=== PATIENT | female | born 1955 ===

== ENCOUNTER 2017-05-16 10:03 | Inpatient (IN) | payer OTHER ==
[2017-05-16 10:04] VITALS: BMI 36.6
--- NOTE | 2017-05-16 12:53 | C.PDOC ---
History Of Present Illness 61yo female with hypertension, high cholesterol, presents to ER for evaluation after she was instructed by her doctor, Dr. Hadley. Patient states she was informed to come for a kidney evaluation as her lab results were not normal. She reports mild pain to her right leg and states she feels short of breath after exertion. She has no other complaints. 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[id number]) History/Exam Limitations: no limitations Reports Recently: Treated By A Physician Past Medical History Reviewed: Historical Data, Nursing Documentation, Vital Signs Vital Signs: Last Vital Signs Temp 98.4 F 05/16/17 14:07 Pulse 58 L 05/16/17 14:07 Resp 18 05/16/17 14:07 BP 152/86 H 05/16/17 14:07 Pulse Ox 100 05/16/17 15:40 - Medical History PMH: HTN, Hypercholesterolemia Surgical History: No Surg Hx - [facility] Procedures DRAINAGE OF RIGHT KIDNEY WITH DRAINAGE DEVICE, PERC APPROACH (01/11/16) Family History: States: No Known Family Hx, Unknown Family Hx - Social History Hx Tobacco Use: No Hx Alcohol Use: No Hx Substance Use: No - Immunization History Hx Tetanus Toxoid Vaccination: No Hx Influenza Vaccination: No Hx Pneumococcal Vaccination: No Review Of Systems Except As Marked, All Systems Reviewed And Found Negative. Constitutional: Negative for: Fever Cardiovascular: Negative for: Chest Pain Respiratory: Positive for: SOB with Excertion Musculoskeletal: Positive for: Leg Pain (right) Physical Exam - Physical Exam Appears: Non-toxic, No Acute Distress Skin: Normal Color, Warm, No Rash Head: Normacephalic Eye(s): bilateral: Normal Inspection, PERRL, EOMI Oral Mucosa: Moist Neck: Normal ROM, Supple Chest: Symmetrical Cardiovascular: Rhythm Regular, No Friction Rub, No Murmur Respiratory: Normal Breath Sounds, No Rales, No Rhonchi, No Wheezing Gastrointestinal/Abdominal: Soft, No Tenderness Back: Normal Inspection, No CVA Tenderness Extremity: Normal ROM, No Tenderness, No Pedal Edema, No Swelling Pulses: Left Dorsalis Pedis: Normal, Right Dorsalis Pedis: Normal Neurological/Psych: Oriented x3, Normal Speech, Normal Cognition Gait: Steady ED Course And Treatment - Laboratory Results Result Diagrams: 05/16/17 12:31 05/16/17 12:31 O2 Sat by Pulse Oximetry: 100 (RA) Pulse Ox Interpretation: Normal - Radiology CXR: Viewed By Me, Read By Radiologist CXR Interpretation: Yes: No Acute Disease. No: Infiltrates Medical Decision Making Medical Decision Making: Plan: -- EKG -- Labs -- CXR Time: 1448 Patient to be admitted under Dr. Mayfield for acute renal failure. 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 - Scribe Statement The provider has reviewed the documentation as recorded by the Scribe (Bonnie Roland) Provider Attestation: All medical record entries made by the Scribe were at my direction and personally dictated by me. I have reviewed the chart and agree that the record accurately reflects my personal performance of the history, physical exam, medical decision making, and the department course for this patient. I have also personally directed, reviewed, and agree with the discharge instructions and disposition.
[2017-05-16 12:54] LABS: BASO # 0.1 K/uL (0.0-0.2); EOS # 0.1 K/uL (0.0-0.7); EOS % 1.7 % (0.0-4.0); HEMOGLOBIN 12.2 g/dL (11.0-16.0); LYMPH # 1.7 K/uL (1.0-4.3); MEAN CELL VOLUME 89.2 fL (81.0-99.0); MEAN CORPUSCULAR HEMOGLOBIN 30.5 pg (27.0-31.0); MEAN CORPUSCULAR HGB CONC 34.2 g/dL (33.0-37.0); MEAN PLATELET VOLUME 8.7 fL (7.2-11.7); MONO # 0.4 K/uL (0.0-0.8); MONO % 6.3 % (0.0-10.0); NEUT # 4.4 K/uL (1.8-7.0); NRBC % 0.1 % (0.0-2.0); RBC 3.99 Mil/uL (3.80-5.20); RED CELL DISTRIBUTION WIDTH 13.6 % (11.5-14.5); WHITE BLOOD COUNT 6.7 K/uL (4.8-10.8)
[2017-05-16 12:59] LABS: PROTHROMBIN TIME 10.8 SECONDS (9.7-12.2)
[2017-05-16 13:05] LABS: ALBUMIN 3.9 g/dL (3.5-5.0); ALT/SGPT 20 U/L (9-52); AST/SGOT 30 U/L (14-36); BLOOD UREA NITROGEN 63 mg/dL (7-17); CALCIUM 9.2 mg/dl (8.6-10.4); GFR AFRICAN-AMERICAN 13; GFR NON-AFRICAN AMERICAN 11
--- NOTE | 2017-05-16 13:11 | RAD ---
PROCEDURE: CHEST RADIOGRAPH, 1 VIEW HISTORY: SOB COMPARISON: None available. FINDINGS: LUNGS: Clear. PLEURA: No pneumothorax or pleural fluid seen. CARDIOVASCULAR: Normal. OSSEOUS STRUCTURES: No significant abnormalities. VISUALIZED UPPER ABDOMEN: Normal. OTHER FINDINGS: None. IMPRESSION: No active disease.
[2017-05-16 13:13] LABS: SQUAMOUS EPITHIAL 1 /hpf (0-5); URINE BACTERIA OCC (<OCC)
[2017-05-16 13:14] LABS: URINE BILIRUBIN NEGATIVE (NEGATIVE); URINE BLOOD 1+ (NEGATIVE); URINE CLARITY Hazy (Clear); URINE COLOR Straw (YELLOW); URINE GLUCOSE (UA) 1+ mg/dL (Normal); URINE LEUKOCYTE ESTERASE 2+ Leu/uL (Negative); URINE NITRATE NEGATIVE (NEGATIVE); URINE PROTEIN 3+ mg/dL (NEGATIVE); URINE UROBILINOGEN NORMAL mg/dL (0.2-1.0)
[2017-05-16 13:17] LABS: B-TYPE NATRIURETIC PEPTIDE 710 pg/mL (0-900); CK-MB 3.31 ng/mL (0.0-3.38)
--- NOTE | 2017-05-16 16:36 | CP.PCM.HP ---
<Yasir Rico - Last Filed: 05/16/17 16:24> History of Present Illness - History of Present Illness History of Present Illness: PGY1 H+P for Dr. 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 Hadley. She was sent in due to elevating Creatinine. Patient states that she has no complaints but was instructed to come to the ED because her kidney numbers were not normal. She reports intermittent right leg numbness for three days but states she has no other complaints. She states she does not want to stay in the hospital because she feels normal. Patient states she has been getting bloodwork done periodically and her kidney levels have been getting worse but she does not know why. She reports she still urinates and has never needed dialysis. She reports she pees frequently. When asked if it chairez, the patient stated that it chairez like it usually does, but nothing new. She denies fevers, chills, nausea, vomiting, diarrhea, constipation, headaches, chest pain, abdominal pain, shortness of breathe or increased swelling of extremities. 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 Present on Admission - Present on Admission Any Indicators Present on Admission: No Review of Systems - Review of Systems All systems: reviewed and no additional remarkable complaints except (as per HPI ) Past Patient History - Past Medical History & Family History Past Medical History?: Yes - Past Social History Smoking Status: Never Smoked - CARDIAC Hx Hypercholesterolemia: Yes Hx Hypertension: Yes - NEUROLOGICAL Hx Neurological Disorder: Yes HX Cerebrovascular Accident: Yes (treated three years ago at [place] in [facility]) - MUSCULOSKELETAL/RHEUMATOLOGICAL Hx Falls: No - PSYCHIATRIC Hx Substance Use: No - SURGICAL HISTORY Hx Surgeries: Yes Hx Section: Yes - ANESTHESIA Hx Anesthesia: No Meds Allergies/Adverse Reactions: Allergies Allergy/AdvReac Type Severity Reaction Status Date / Time No Known Allergies Allergy Verified 05/16/17 10:33 Physical Exam - Constitutional Appears: Well, Non-toxic, No Acute Distress - Head Exam Head Exam: ATRAUMATIC, NORMOCEPHALIC - Eye Exam Eye Exam: EOMI, Normal appearance. absent: Scleral icterus Pupil Exam: NORMAL ACCOMODATION - ENT Exam ENT Exam: Mucous Membranes Moist - Respiratory Exam Respiratory Exam: Clear to Auscultation Bilateral, NORMAL BREATHING PATTERN. absent: Accessory Muscle Use, Rales, Rhonchi, Wheezes, Respiratory Distress - Cardiovascular Exam Cardiovascular Exam: REGULAR RHYTHM, +S1, +S2 - GI/Abdominal Exam GI & Abdominal Exam: Normal Bowel Sounds, Soft. absent: Distended, Firm, Guarding, Rigid, Tenderness - Extremities Exam Extremities exam: Positive for: normal inspection, pedal pulses present. Negative for: calf tenderness, pedal edema - Back Exam Back exam: NORMAL INSPECTION. absent: CVA tenderness (L), CVA tenderness (R), paraspinal tenderness, vertebral tenderness - Neurological Exam Neurological exam: Alert, Oriented x3 - Psychiatric Exam Psychiatric exam: Normal Affect, Normal Mood - Skin Skin Exam: Dry, Warm Results - Vital Signs Recent Vital Signs: Last Vital Signs Temp 98.4 F 05/16/17 14:07 Pulse 58 L 05/16/17 14:07 Resp 18 05/16/17 14:07 BP 152/86 H 05/16/17 14:07 Pulse Ox 100 05/16/17 16:15 - Labs Result Diagrams: 05/16/17 12:31 05/16/17 12:31 Labs: Laboratory Results - last 24 hr 05/16/17 05/16/17 05/16/17 12:31 12:31 12:31 WBC 6.7 RBC 3.99 Hgb 12.2 Hct 35.6 MCV 89.2 MCH 30.5 MCHC 34.2 RDW 13.6 Plt Count 233 MPV 8.7 Neut % (Auto) 65.0 Lymph % (Auto) 26.0 [place] % (Auto) 6.3 Eos % (Auto) 1.7 Baso % (Auto) 1.0 Neut # (Auto) 4.4 Lymph # (Auto) 1.7 [place] # (Auto) 0.4 Eos # (Auto) 0.1 Baso # (Auto) 0.1 PT 10.8 INR 1.0 APTT 32 Sodium 137 Potassium 4.7 Chloride 107 Carbon Dioxide 18 L Anion Gap 17 BUN 63 H Creatinine 4.2 H Est GFR ( Amer) 13 Est GFR (Non-Af Amer) 11 Random Glucose 93 Calcium 9.2 Total Bilirubin 0.8 AST 30 ALT 20 Alkaline Phosphatase 132 H Total Creatine Kinase 201 H CK-MB (Mass) 3.31 Troponin I < 0.0120 NT-Pro-B Natriuret Pep 710 Total Protein 7.8 Albumin 3.9 Globulin 3.9 Albumin/Globulin Ratio 1.0 Urine Color Urine Clarity Urine pH Ur Specific [place] Urine Protein Urine Glucose (UA) Urine Ketones Urine Blood Urine Nitrate Urine Bilirubin Urine Urobilinogen Ur Leukocyte Esterase Urine WBC (Auto) Urine RBC (Auto) Ur Squamous Epith Cells Urine Bacteria 05/16/17 12:57 WBC RBC Hgb Hct MCV MCH MCHC RDW Plt Count MPV Neut % (Auto) Lymph % (Auto) [place] % (Auto) Eos % (Auto) Baso % (Auto) Neut # (Auto) Lymph # (Auto) [place] # (Auto) Eos # (Auto) Baso # (Auto) PT INR APTT Sodium Potassium Chloride Carbon Dioxide Anion Gap BUN Creatinine Est GFR ( Amer) Est GFR (Non-Af Amer) Random Glucose Calcium Total Bilirubin AST ALT Alkaline Phosphatase Total Creatine Kinase CK-MB (Mass) Troponin I NT-Pro-B Natriuret Pep Total Protein Albumin Globulin Albumin/Globulin Ratio Urine Color Straw Urine Clarity Hazy Urine pH 5.0 Ur Specific [place] 1.010 Urine Protein 3+ H Urine Glucose (UA) 1+ Urine Ketones Negative Urine Blood 1+ H Urine Nitrate Negative Urine Bilirubin Negative Urine Urobilinogen Normal Ur Leukocyte Esterase 2+ H Urine WBC (Auto) 48 H Urine RBC (Auto) 1 Ur Squamous Epith Cells 1 Urine Bacteria Occ H Assessment & Plan - Assessment and Plan (Free Text) Plan: Acute on Chronic Kidney Failure Nephrology Consulted, Dr. Hadley - f/u recs Upon admission Cr 4.2 -Recent Cr levels 04/07/17 - 4.0 04/01/17 - 4.2 02/04/17 - 3.4 11/28/16 - 3.0 08/30/15 - 2.8 01/18/16 - 2.0 Renal US 04/07/17 - 1. Again identified is severe hydronephrosis of the right kidney with staghorn calculus. Markedly thinned renal parenchymal cortex. 2. Increased echogenicity of the left renal parenchymal cortex suggestive for medical renal disease with associated punctate hypoechoic cyst. - Staghorn Calculus first discovered in 12/2015 as incidental finding. Repeat Renal US - f/u UA - repeat - f/u Urine culture - f/u 1/2NS @75mL/hr Dyslipidemia Continue home Lovastatin 40mg PO daily HTN Continue home Metoprolol Succ 50mg PO daily Prophylactic Care Heparin 5000u SC q8h GI ppx not indicated Heart Healthy Diet Case discussed with Dr. Tran Rico PGY1 <Francois Mayfield H - Last Filed: 05/16/17 17:15> Results - Vital Signs Recent Vital Signs: Last Vital Signs Temp 99.1 F 05/16/17 16:24 Pulse 66 05/16/17 16:24 Resp 18 05/16/17 16:24 BP 132/83 05/16/17 16:24 Pulse Ox 98 05/16/17 16:24 - Labs Result Diagrams: 05/16/17 12:31 05/16/17 12:31 Labs: Laboratory Results - last 24 hr 05/16/17 05/16/17 05/16/17 12:31 12:31 12:31 WBC 6.7 RBC 3.99 Hgb 12.2 Hct 35.6 MCV 89.2 MCH 30.5 MCHC 34.2 RDW 13.6 Plt Count 233 MPV 8.7 Neut % (Auto) 65.0 Lymph % (Auto) 26.0 [place] % (Auto) 6.3 Eos % (Auto) 1.7 Baso % (Auto) 1.0 Neut # (Auto) 4.4 Lymph # (Auto) 1.7 [place] # (Auto) 0.4 Eos # (Auto) 0.1 Baso # (Auto) 0.1 PT 10.8 INR 1.0 APTT 32 Sodium 137 Potassium 4.7 Chloride 107 Carbon Dioxide 18 L Anion Gap 17 BUN 63 H Creatinine 4.2 H Est GFR ( Amer) 13 Est GFR (Non-Af Amer) 11 Random Glucose 93 Calcium 9.2 Total Bilirubin 0.8 AST 30 ALT 20 Alkaline Phosphatase 132 H Total Creatine Kinase 201 H CK-MB (Mass) 3.31 Troponin I < 0.0120 NT-Pro-B Natriuret Pep 710 Total Protein 7.8 Albumin 3.9 Globulin 3.9 Albumin/Globulin Ratio 1.0 Urine Color Urine Clarity Urine pH Ur Specific [place] Urine Protein Urine Glucose (UA) Urine Ketones Urine Blood Urine Nitrate Urine Bilirubin Urine Urobilinogen Ur Leukocyte Esterase Urine WBC (Auto) Urine RBC (Auto) Ur Squamous Epith Cells Urine Bacteria 05/16/17 12:57 WBC RBC Hgb Hct MCV MCH MCHC RDW Plt Count MPV Neut % (Auto) Lymph % (Auto) [place] % (Auto) Eos % (Auto) Baso % (Auto) Neut # (Auto) Lymph # (Auto) [place] # (Auto) Eos # (Auto) Baso # (Auto) PT INR APTT Sodium Potassium Chloride Carbon Dioxide Anion Gap BUN Creatinine Est GFR ( Amer) Est GFR (Non-Af Amer) Random Glucose Calcium Total Bilirubin AST ALT Alkaline Phosphatase Total Creatine Kinase CK-MB (Mass) Troponin I NT-Pro-B Natriuret Pep Total Protein Albumin Globulin Albumin/Globulin Ratio Urine Color Straw Urine Clarity Hazy Urine pH 5.0 Ur Specific [place] 1.010 Urine Protein 3+ H Urine Glucose (UA) 1+ Urine Ketones Negative Urine Blood 1+ H Urine Nitrate Negative Urine Bilirubin Negative Urine Urobilinogen Normal Ur Leukocyte Esterase 2+ H Urine WBC (Auto) 48 H Urine RBC (Auto) 1 Ur Squamous Epith Cells 1 Urine Bacteria Occ H Attending/Attestation - Attestation I have personally seen and examined this patient.: Yes I have fully participated in the care of the patient.: Yes I have reviewed all pertinent clinical information: Yes Notes (Text): 05/16/17 17:15 Medical attending: I saw the patient in the ER hallway 6. I saw the patient with the senior medical technologist and reviewed the above note by the resident and agree The patient was sent up from the [facility] medical clinic. She had just written recently seen nephrology Dr. Albino Luu and sent in with a note on RX concerning for acute kidney injury on CKD This is a very nice 61-year-old female with a history of CK D for quite some time now. She has had a a slight creatinine of around 3.0 and 2017. However for the past 3 lab checks her creatinine has increased up to about 4.2 now. She had a renal ultrasound done back in 03/28/2017 which showed that she does have severe hydronephrosis of the right kidney with a staghorn calculus. However review of previous ultrasounds showed that she's had this hydronephrosis as well as staghorn calculus dating back to 2016. She's not in any acute distress at this time. She reports that she is feeling well and she is walking well. When I saw her in the emergency room she was debating if she wanted to stay or not but she decided to stay. We will recheck to nephrology, will recheck a UA, urinalysis, a repeat renal ultrasound. Will consider getting a CT of the abdomen and pelvis as well. We'll also resume her beta kristie for blood pressure control. She does not feel weak or tired. I reviewed the chest x-ray is looks stable. Potassium level is also stable as well. Her bicarbonate is also stable as well. Thank you very much we will consult the fuel cell technician who sent her to the hospital. And we'll see Francois Mayfield
[2017-05-16] MEDS: Sodium Chloride 0.45% 1,000 ML IV SCH (17:18)
[2017-05-16 18:10] VITALS: RESP 20
[2017-05-16 20:56] LABS: URINE BACTERIA OCC (<OCC); URINE BILIRUBIN NEGATIVE (NEGATIVE); URINE BLOOD 1+ (NEGATIVE); URINE CLARITY Clear (Clear); URINE COLOR Yellow (YELLOW); URINE GLUCOSE (UA) 2+ mg/dL (Normal); URINE HYALINE CAST 0-2 /lpf (0-2); URINE LEUKOCYTE ESTERASE 3+ Leu/uL (Negative); URINE NITRATE NEGATIVE (NEGATIVE); URINE PROTEIN 3+ mg/dL (NEGATIVE); URINE UROBILINOGEN NORMAL mg/dL (0.2-1.0)
[2017-05-17] MEDS: Sodium Chloride 0.45% 1,000 ML IV SCH ×4 (05:13→21:25)
--- NOTE | 2017-05-17 05:16 | CP.PCM.PN ---
<Babar Rabago E - Last Filed: 05/17/17 07:00> Subjective - Date & Time of Evaluation Date of Evaluation: 05/17/17 Time of Evaluation: 00:35 - Subjective Subjective: Medicine progress note Patient was seen and examined at bedside. Patient was resting comfortably in bed. Patient reports that she is doing well and has no acute issues or complaints. Patient denies chest pain, SOB, palpitations, fever, chills, nausea , vomiting, or abdominal pain. Objective - Vital Signs/Intake and Output Vital Signs (last 24 hours): Temp Pulse Resp BP Pulse Ox 98.2 F 70 20 113/69 98 05/17/17 00:00 05/17/17 00:00 05/17/17 00:00 05/17/17 00:00 05/17/17 00:00 Intake and Output: 05/16/17 05/17/17 18:59 06:59 Intake Total 800 Balance 800 - Medications Medications: Current Medications Heparin Sodium (Porcine) (Heparin) 5,000 units SC Q8 [facility] Last Admin: 05/17/17 05:15 Dose: 5,000 units Sodium Chloride (Sodium Chloride 0.45%) 1,000 mls @ 75 mls/hr IV .[id number] [facility] Last Admin: 05/17/17 05:14 Dose: 75 mls/hr Metoprolol Succinate (Toprol Xl) 50 mg PO DAILY [facility] Rosuvastatin Calcium (Crestor) 5 mg PO HS [facility] Last Admin: 05/16/17 21:38 Dose: 5 mg - Labs Labs: 05/16/17 12:31 05/16/17 12:31 PT 10.8 SECONDS (9.7-12.2) 05/16/17 12:31 INR 1.0 05/16/17 12:31 APTT 32 SECONDS (21-34) 05/16/17 12:31 - Constitutional Appears: Well, No Acute Distress - Head Exam Head Exam: ATRAUMATIC, NORMAL INSPECTION - Eye Exam Eye Exam: EOMI, Normal appearance - ENT Exam ENT Exam: Mucous Membranes Moist - Respiratory Exam Respiratory Exam: Clear to Ausculation Bilateral, NORMAL BREATHING PATTERN. absent: Rhonchi, Wheezes, Respiratory Distress - Cardiovascular Exam Cardiovascular Exam: REGULAR RHYTHM, +S1, +S2 - GI/Abdominal Exam GI & Abdominal Exam: Soft, Normal Bowel Sounds. absent: Distended, Firm, Guarding, Rigid, Tenderness - Extremities Exam Extremities Exam: Normal Inspection. absent: Calf Tenderness, Pedal Edema - Back Exam Back Exam: absent: CVA tenderness (L), CVA tenderness (R) - Neurological Exam Neurological Exam: Alert, Awake, Oriented x3 - Psychiatric Exam Psychiatric exam: Normal Affect - Skin Skin Exam: Normal Color Assessment and Plan (1) Renal failure (ARF), acute on chronic Assessment & Plan: Nephrology Consulted, Dr. Hadley * Management as per recommendation Labs: Increasing creatinine levels: * On admission: 4.2 Recent Cr levels 04/07/17 - 4.0 04/01/17 - 4.2 02/04/17 - 3.4 11/28/16 - 3.0 08/30/15 - 2.8 01/18/16 - 2.0 UA (05/16/17): 3+ protein, 2+ glucose, 3+LE, WBC (31), Awaiting urine culture Imaging: * Renal US 04/07/17 - 1. Again identified is severe hydronephrosis of the right kidney with staghorn calculus. Markedly thinned renal parenchymal cortex. 2. Increased echogenicity of the left renal parenchymal cortex suggestive for medical renal disease with associated punctate hypoechoic cyst. - Staghorn Calculus first discovered in 12/2015 as incidental finding. * Awaiting repeat renal US Status: Acute (2) Urinary tract infection Assessment & Plan: UA (05/16/17): 3+ protein, 2+ glucose, 3+LE, WBC (31), Awaiting urine culture * Rocephin 1gm IV daily Status: Acute (3) HTN (hypertension) Assessment & Plan: Continue home Metoprolol Succ 50mg PO daily Status: Acute (4) HLD (hyperlipidemia) Assessment & Plan: Continue home Lovastatin 40mg PO daily Status: Acute (5) Prophylactic measure Assessment & Plan: Heparin 5000u SC q8h GI ppx not indicated Heart Healthy Diet All plans and management discussed with attending, Dr. Mayfield Status: Acute <Francois Mayfield - Last Filed: 05/17/17 11:29> Objective - Vital Signs/Intake and Output Vital Signs (last 24 hours): Temp Pulse Resp BP Pulse Ox 98.1 F 67 20 155/71 H 98 05/17/17 09:13 05/17/17 09:13 05/17/17 09:13 05/17/17 09:13 05/17/17 09:13 Intake and Output: 05/17/17 05/17/17 06:59 18:59 Intake Total 800 Balance 800 - Medications Medications: Current Medications Heparin Sodium (Porcine) (Heparin) 5,000 units SC Q8 [facility] Last Admin: 05/17/17 05:15 Dose: 5,000 units Sodium Chloride (Sodium Chloride 0.45%) 1,000 mls @ 75 mls/hr IV .[id number] [facility] Last Admin: 05/17/17 05:14 Dose: 75 mls/hr Ceftriaxone Sodium (Rocephin 1 Gram Ivpb) 1 gm in 100 mls @ 100 mls/hr IVPB DAILY [facility] Last Admin: 05/17/17 10:39 Dose: 100 mls/hr Metoprolol Succinate (Toprol Xl) 50 mg PO DAILY [facility] Last Admin: 05/17/17 10:37 Dose: 50 mg Rosuvastatin Calcium (Crestor) 5 mg PO HS [facility] Last Admin: 05/16/17 21:38 Dose: 5 mg - Labs Labs: 05/17/17 07:34 05/17/17 07:34 PT 10.8 SECONDS (9.7-12.2) 05/16/17 12:31 INR 1.0 05/16/17 12:31 APTT 32 SECONDS (21-34) 05/16/17 12:31 Attending/Attestation - Attestation I have personally seen and examined this patient.: Yes I have fully participated in the care of the patient.: Yes I have reviewed all pertinent clinical information, including history, physical exam and plan: Yes Notes (Text): 05/17/17 11:25 Medical attending: patient was seen and examined by me. Agree with the above note by the resident The patient reported she did not have any new concerns at this moment. She reports still urinating ok as well as breathing ok, denied chest pain, denied weakness or dizziness. She had a repeat ultrasound of the kidney - again showing the hydroneprosis as well as staghorn calculus. She currently is on IVF at this time. Creatine is the same as yesterday. Will order CT of the abdomen and pelvis without contrast. thank you Francois Mayfield
[2017-05-17 07:57] LABS: BASO % 0.7 % (0.0-2.0); EOS # 0.1 K/uL (0.0-0.7); HEMOGLOBIN 10.9 g/dL (11.0-16.0); LYMPH # 1.8 K/uL (1.0-4.3); LYMPH % 31.9 % (20.0-40.0); MEAN CELL VOLUME 87.8 fL (81.0-99.0); MEAN CORPUSCULAR HEMOGLOBIN 30.4 pg (27.0-31.0); MEAN CORPUSCULAR HGB CONC 34.7 g/dL (33.0-37.0); MEAN PLATELET VOLUME 8.5 fL (7.2-11.7); MONO # 0.4 K/uL (0.0-0.8); MONO % 7.8 % (0.0-10.0); NEUT # 3.3 K/uL (1.8-7.0); NEUT % 57.6 % (50.0-75.0); RBC 3.59 Mil/uL (3.80-5.20); RED CELL DISTRIBUTION WIDTH 13.2 % (11.5-14.5); WHITE BLOOD COUNT 5.7 K/uL (4.8-10.8)
[2017-05-17 08:05] LABS: ALB/GLOB RATIO 0.9 (1.0-2.1); CALCIUM 8.3 mg/dl (8.6-10.4)
--- NOTE | 2017-05-17 09:43 | RAD ---
Chest x-ray two views History: Renal failure. Comparison: 05/16/2017 Findings: Mild venous congestion. Tortuous aorta. Top normal heart size. Impression: Mild venous congestion. Tortuous aorta.
--- NOTE | 2017-05-17 10:36 | CP.PCM.CON ---
History of Present Illness - History of Present Illness History of Present Illness: patient seen and examined consult dictated Hx ckd 4 hbp staghorn calculus admitted with rising creatine may be natural progression of disease agree with iv hydration may require start of dialysis Past Patient History - Past Medical History & Family History Past Medical History?: Yes - Past Social History Smoking Status: Never Smoked - CARDIAC Hx Hypercholesterolemia: Yes Hx Hypertension: Yes - NEUROLOGICAL Hx Neurological Disorder: Yes HX Cerebrovascular Accident: Yes (treated three years ago at [place] in [facility] - MUSCULOSKELETAL/RHEUMATOLOGICAL Hx Falls: No - PSYCHIATRIC Hx Substance Use: No - SURGICAL HISTORY Hx Surgeries: Yes Hx Section: Yes - ANESTHESIA Hx Anesthesia: No Meds Allergies/Adverse Reactions: Allergies Allergy/AdvReac Type Severity Reaction Status Date / Time No Known Allergies Allergy Verified 05/16/17 10:33 - Medications Medications: Current Medications Heparin Sodium (Porcine) (Heparin) 5,000 units SC Q8 [facility] Last Admin: 05/17/17 05:15 Dose: 5,000 units Sodium Chloride (Sodium Chloride 0.45%) 1,000 mls @ 75 mls/hr IV .[id number] [facility] Last Admin: 05/17/17 05:14 Dose: 75 mls/hr Ceftriaxone Sodium (Rocephin 1 Gram Ivpb) 1 gm in 100 mls @ 100 mls/hr IVPB DAILY [facility] Metoprolol Succinate (Toprol Xl) 50 mg PO DAILY [facility] Rosuvastatin Calcium (Crestor) 5 mg PO HS [facility] Last Admin: 05/16/17 21:38 Dose: 5 mg Results - Vital Signs Recent Vital Signs: Last Vital Signs Temp 98.1 F 05/17/17 09:13 Pulse 67 05/17/17 09:13 Resp 20 05/17/17 09:13 BP 155/71 H 05/17/17 09:13 Pulse Ox 98 05/17/17 09:13 - Labs Result Diagrams: 05/17/17 07:34 05/17/17 07:34 Labs: Laboratory Results - last 24 hr 05/16/17 05/16/17 05/16/17 12:31 12:31 12:31 WBC 6.7 RBC 3.99 Hgb 12.2 Hct 35.6 MCV 89.2 MCH 30.5 MCHC 34.2 RDW 13.6 Plt Count 233 MPV 8.7 Neut % (Auto) 65.0 Lymph % (Auto) 26.0 Metcalfe % (Auto) 6.3 Eos % (Auto) 1.7 Baso % (Auto) 1.0 Neut # (Auto) 4.4 Lymph # (Auto) 1.7 Metcalfe # (Auto) 0.4 Eos # (Auto) 0.1 Baso # (Auto) 0.1 PT 10.8 INR 1.0 APTT 32 Sodium 137 Potassium 4.7 Chloride 107 Carbon Dioxide 18 L Anion Gap 17 BUN 63 H Creatinine 4.2 H Est GFR ( Amer) 13 Est GFR (Non-Af Amer) 11 Random Glucose 93 Calcium 9.2 Total Bilirubin 0.8 AST 30 ALT 20 Alkaline Phosphatase 132 H Total Creatine Kinase 201 H CK-MB (Mass) 3.31 Troponin I < 0.0120 NT-Pro-B Natriuret Pep 710 Total Protein 7.8 Albumin 3.9 Globulin 3.9 Albumin/Globulin Ratio 1.0 Urine Color Urine Clarity Urine pH Ur Specific Ker[place] Urine Protein Urine Glucose (UA) Urine Ketones Urine Blood Urine Nitrate Urine Bilirubin Urine Urobilinogen Ur Leukocyte Esterase Urine WBC (Auto) Urine RBC (Auto) Ur Squamous Epith Cells Urine Bacteria Hyaline Casts 05/16/17 05/16/17 05/17/17 12:57 20:48 07:34 WBC 5.7 RBC 3.59 L Hgb 10.9 L Hct 31.5 L MCV 87.8 MCH 30.4 MCHC 34.7 RDW 13.2 Plt Count 212 MPV 8.5 Neut % (Auto) 57.6 Lymph % (Auto) 31.9 Metcalfe % (Auto) 7.8 Eos % (Auto) 2.0 Baso % (Auto) 0.7 Neut # (Auto) 3.3 Lymph # (Auto) 1.8 Metcalfe # (Auto) 0.4 Eos # (Auto) 0.1 Baso # (Auto) 0.0 PT INR APTT Sodium Potassium Chloride Carbon Dioxide Anion Gap BUN Creatinine Est GFR ( Amer) Est GFR (Non-Af Amer) Random Glucose Calcium Total Bilirubin AST ALT Alkaline Phosphatase Total Creatine Kinase CK-MB (Mass) Troponin I NT-Pro-B Natriuret Pep Total Protein Albumin Globulin Albumin/Globulin Ratio Urine Color Straw Yellow Urine Clarity Hazy Clear Urine pH 5.0 6.0 Ur Specific Ker[place] 1.010 1.010 Urine Protein 3+ H 3+ H Urine Glucose (UA) 1+ 2+ H Urine Ketones Negative Negative Urine Blood 1+ H 1+ H Urine Nitrate Negative Negative Urine Bilirubin Negative Negative Urine Urobilinogen Normal Normal Ur Leukocyte Esterase 2+ H 3+ H Urine WBC (Auto) 48 H 31 H Urine RBC (Auto) 1 5 H Ur Squamous Epith Cells 1 Urine Bacteria Occ H Occ H Hyaline Casts 0-2 05/17/17 07:34 WBC RBC Hgb Hct MCV MCH MCHC RDW Plt Count MPV Neut % (Auto) Lymph % (Auto) Metcalfe % (Auto) Eos % (Auto) Baso % (Auto) Neut # (Auto) Lymph # (Auto) [place] # (Auto) Eos # (Auto) Baso # (Auto) PT INR APTT Sodium 136 Potassium 3.8 Chloride 109 H Carbon Dioxide 19 L Anion Gap 11 BUN 58 H Creatinine 4.1 H Est GFR ( Amer) 13 Est GFR (Non-Af Amer) 11 Random Glucose 88 Calcium 8.3 L Total Bilirubin 0.4 AST 20 ALT 21 Alkaline Phosphatase 111 Total Creatine Kinase CK-MB (Mass) Troponin I NT-Pro-B Natriuret Pep Total Protein 6.3 Albumin 3.0 L D Globulin 3.3 Albumin/Globulin Ratio 0.9 L Urine Color Urine Clarity Urine pH Ur Specific [place] Urine Protein Urine Glucose (UA) Urine Ketones Urine Blood Urine Nitrate Urine Bilirubin Urine Urobilinogen Ur Leukocyte Esterase Urine WBC (Auto) Urine RBC (Auto) Ur Squamous Epith Cells Urine Bacteria Hyaline Casts
[2017-05-17] MEDS: Metoprolol Succinate 50 mg XL Tab PO SCH (10:37)
[2017-05-17] MEDS: cefTRIAXone 1 gm 1 GM/100 ML BAG IVPB SCH (10:39)
--- NOTE | 2017-05-17 10:51 | US ---
Renal ultrasound History: Worsening renal function. History of staghorn calculus. Comparison: 04/07/2017 Technique: Real-time sonography was performed through the kidneys. Findings: Right kidney: 10.0 x 6.7 x 6.6 centimeters. Again identified is severe right renal hydronephrosis with associated prominent thinning of the cortical parenchyma. Calculi/calcification seen within the right renal pelvis consistent with known staghorn calculus. Correlation with noncontrast CT scan would be helpful if clinically indicated. Left Kidney: 11.5 x 5.6 x 4.7 centimeters. Increased echogenicity of the renal parenchymal cortex suggestive for medical renal disease. Previously noted hypoechoic cyst seen within the left kidney is not well visualized the current study. No gross hydronephrosis. Limited visualization of the aorta which appears grossly preserved. Underdistended urinary bladder limits evaluation. Impression: 1. Severe right renal hydronephrosis with cortical parenchymal thinning. Persistent staghorn calculus / calcification within the renal pelvis. 2. Prominent increased echogenicity of the renal parenchymal cortex of the left kidney suggestive for medical renal disease.
--- NOTE | 2017-05-17 15:12 | CT ---
CT abdomen and pelvis History: Acute renal insufficiency on chronic kidney disease. History of staghorn calculus. Comparison: Ultrasound dated 05/17/2017 CT dated 01/17/2016 Technique: Multiple contiguous axial images were performed through the abdomen and pelvis without the use of intravenous contrast. Findings: Mild atelectasis at the lung bases. No pleural or pericardial effusion. Liver is preserved. 1.3 centimeter calculus at the fundus of the gallbladder. Diminutive spleen. Adrenal glands are preserved. Pancreas is preserved. Upper abdominal bowel is preserved. Again identified is severe hydronephrosis of the right kidney with marked cortical parenchymal thinning. Large staghorn calculus again identified in the right renal pelvis measuring up to 5 centimeters in craniocaudal dimension with multiple lobulations. Relative atrophy of the mid to lower pole of the right kidney. Left Kidney: 2 millimeter upper pole nonobstructive calculus. Lobulated cortex. Small punctate partially exophytic 4 millimeter hypodensity at the lower pole of the left kidney, too small to adequately characterize. 2-3 millimeter echogenic calcification in the renal hilum which may represent vascular calcification. No gross hydroureter bilaterally. Few calcified phleboliths in the pelvis. Underdistended urinary bladder. Heterogeneous uterus. 1.7 centimeter left adnexal cyst. Fecal retention the colon. Appendix is preserved. Calcification and plaque within the aorta and branch vessels. Mild sclerosis at the right SI joint. Impression: 1. Again identified is severe hydronephrosis of the right kidney with marked cortical parenchymal thinning. Large staghorn calculus again identified in the right renal pelvis measuring up to 5 centimeters in craniocaudal dimension with multiple lobulations. Relative atrophy of the mid to lower pole of the right kidney. 2. 2 millimeter upper pole nonobstructive left renal calculus. Lobulated cortex. Small punctate partially exophytic 4 millimeter hypodensity at the lower pole of the left kidney, too small to adequately characterize. 2-3 millimeter echogenic calcification in the renal hilum which may represent vascular calcification. 3. 1.3 centimeter calculus at the fundus of the gallbladder.
--- NOTE | 2017-05-17 17:46 | CON ---
HISTORY OF PRESENT ILLNESS: Ms. Morales is a 61-year-old female who is being seen for renal failure. Ms. Morales has a history of hypertension and CKD with her serum creatinine of approximately 3 mg percent. She also was fount to have a right sided staghorn calculus years ago, apparently asymptomatic. 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 She was instructed to come to the emergency room and was admitted. On 05/16/2017, her white count was 6700, hemoglobin 12.2, hematocrit 35.6, sodium 137, potassium 4.7, chloride 107, CO2 18, BUN 63, creatinine 4.2, calcium 9.2, AST of 30, ALT of 20, alk phos of 132, and CPK of 201. She was started on IV fluids and today her hemoglobin is 10.9. Sodium 136, potassium 3.8, chloride 109, CO2 19, BUN 58, creatinine 4.1, calcium 8.3. PAST MEDICAL HISTORY: Please see the above. ALLERGIES: SHE HAS NO ALLERGIES. She has been [facility] to [facility] in the past. MEDICATIONS: Include lovastatin and metoprolol. FAMILY HISTORY: Not known. SOCIAL HISTORY: She denies alcohol or drug abuse. She does not smoke. REVIEW OF SYSTEMS: She denies chills. She denied chest pain, cough, or hemoptysis. There was no abdominal pain, nausea, vomiting, or diarrhea. She also has no dysuria or gross hematuria. PHYSICAL EXAMINATION GENERAL: She is awake, alert, and in no acute distress. VITAL SIGNS: Her blood pressure was 155/71, her temperature was 98.1, and pulse 67. NECK: There was no jugular venous distention at 30 degrees. LUNGS: Clear. HEART: Rhythm is regular. ABDOMEN: Soft. Nontender. There was no CVA tenderness or presacral edema.. EXTREMITIES: There was no leg edema and she moved all her extremities. IMPRESSION: Acute kidney injury, etiology unclear. Considerations include natural progression of chronic kidney disease and/or volume depletion. Chronic kidney disease 4, staghorn calculus, hypertensive nephrosclerosis, and obstructive nephropathy. RECOMMENDATIONS: Agree with IV hydration and antibiotics, serial chemistries, may require the initiation of dialysis. Thank you for your kind referral. We will continue to follow with you. Sincerely, Silverio Correa MD [facility] # [id number]
--- NOTE | 2017-05-17 20:01 | CARD ---
APPROVED REPORT EKG Measurement Heart [id number] <Conclusion> Normal sinus rhythm Voltage criteria for left ventricular hypertrophy Abnormal ECG
--- NOTE | 2017-05-18 01:57 | CP.PCM.PN ---
Subjective - Date & Time of Evaluation Date of Evaluation: 05/18/17 Time of Evaluation: 01:15 - Subjective Subjective: Medicine progress note Patient was seen and examined at bedside. Patient was resting comfortably in bed. Patient reports that she is doing well and has no acute issues or complaints. Patient denies chest pain, SOB, palpitations, fever, chills, nausea , vomiting, abdominal pain, diarrhea/constipation or urinary symptoms. Objective - Vital Signs/Intake and Output Vital Signs (last 24 hours): Temp Pulse Resp BP Pulse Ox 98.2 F 66 20 132/83 99 05/17/17 16:00 05/17/17 16:00 05/17/17 16:00 05/17/17 19:00 05/17/17 16:00 Intake and Output: 05/17/17 05/18/17 18:59 06:59 Intake Total 1380 600 Output Total 2 Balance 1380 598 - Medications Medications: Current Medications Heparin Sodium (Porcine) (Heparin) 5,000 units SC Q8 [facility] Last Admin: 05/17/17 21:09 Dose: 5,000 units Sodium Chloride (Sodium Chloride 0.45%) 1,000 mls @ 75 mls/hr IV .[id number] [facility] Last Admin: 05/17/17 21:25 Dose: Not Given Ceftriaxone Sodium (Rocephin 1 Gram Ivpb) 1 gm in 100 mls @ 100 mls/hr IVPB DAILY [facility] Last Admin: 05/17/17 10:39 Dose: 100 mls/hr Metoprolol Succinate (Toprol Xl) 50 mg PO DAILY [facility] Last Admin: 05/17/17 10:37 Dose: 50 mg Rosuvastatin Calcium (Crestor) 5 mg PO HS [facility] Last Admin: 05/17/17 21:09 Dose: 5 mg - Labs Labs: 05/17/17 07:34 05/17/17 07:34 PT 10.8 SECONDS (9.7-12.2) 05/16/17 12:31 INR 1.0 05/16/17 12:31 APTT 32 SECONDS (21-34) 05/16/17 12:31 - Constitutional Appears: Well, No Acute Distress - Head Exam Head Exam: ATRAUMATIC, NORMAL INSPECTION - Eye Exam Eye Exam: EOMI, Normal appearance - ENT Exam ENT Exam: Mucous Membranes Moist - Respiratory Exam Respiratory Exam: Clear to Ausculation Bilateral, NORMAL BREATHING PATTERN. absent: Prolonged Expiratory Phase, Rhonchi, Wheezes, Respiratory Distress - Cardiovascular Exam Cardiovascular Exam: REGULAR RHYTHM, +S1, +S2. absent: Murmur - GI/Abdominal Exam GI & Abdominal Exam: Soft, Normal Bowel Sounds. absent: Distended, Firm, Guarding, Rigid, Tenderness - Extremities Exam Extremities Exam: Normal Inspection. absent: Calf Tenderness, Pedal Edema - Back Exam Back Exam: absent: CVA tenderness (L), CVA tenderness (R) - Neurological Exam Neurological Exam: Alert, Awake, Oriented x3 - Psychiatric Exam Psychiatric exam: Normal Affect - Skin Skin Exam: Normal Color Assessment and Plan (1) Renal failure (ARF), acute on chronic Assessment & Plan: Nephrology Consulted, Dr. Hadley * Management as per recommendation * recommendation for continuation of IV fluid and may have to start HD Labs: Increasing creatinine levels; remains elevated * On admission: 4.2 Recent Cr levels 04/07/17 - 4.0 04/01/17 - 4.2 02/04/17 - 3.4 11/28/16 - 3.0 08/30/15 - 2.8 01/18/16 - 2.0 UA (05/16/17): 3+ protein, 2+ glucose, 3+LE, WBC (31), urine culture (05/16/17): Negative Imaging: * Renal US 04/07/17 - 1. Again identified is severe hydronephrosis of the right kidney with staghorn calculus. Markedly thinned renal parenchymal cortex. 2. Increased echogenicity of the left renal parenchymal cortex suggestive for medical renal disease with associated punctate hypoechoic cyst. - Staghorn Calculus first discovered in 12/2015 as incidental finding. * Repeat renal US (05/17/17): Severe right renal hydronephrosis with cortical parenchymal thinning. Persistent staghorn calculus / calcification within the renal pelvis. Prominent increased echogenicity of the renal parenchymal cortex of the left kidney suggestive for medical renal disease. * Abdomen/Pelvis CT (05/17/17): 1. Again identified is severe hydronephrosis of the right kidney with marked cortical parenchymal thinning. Large staghorn calculus again identified in the right renal pelvis measuring up to 5 centimeters in craniocaudal dimension with multiple lobulations. Relative atrophy of the mid to lower pole of the right kidney. 2. 2 millimeter upper pole nonobstructive left renal calculus. Lobulated cortex. Small punctate partially exophytic 4 millimeter hypodensity at the lower pole of the left kidney, too small to adequately characterize. 2-3 millimeter echogenic calcification in the renal hilum which may represent vascular calcification. 3. 1.3 centimeter calculus at the fundus of the gallbladder. Status: Acute (2) Urinary tract infection Assessment & Plan: UA (05/16/17): 3+ protein, 2+ glucose, 3+LE, WBC (31), Urine culture (05/16/17): Negative * Rocephin 1gm IV daily Status: Acute (3) HTN (hypertension) Assessment & Plan: Continue home Metoprolol Succ 50mg PO daily Status: Acute (4) HLD (hyperlipidemia) Assessment & Plan: Crestor 5mg PO HS Status: Acute (5) Prophylactic measure Assessment & Plan: Heparin 5000u SC q8h GI ppx not indicated Heart Healthy Diet All plans and management will be discuss with attending, Dr. Mayfield Status: Acute
[2017-05-18 08:07] LABS: BASO % 0.6 % (0.0-2.0); EOS # 0.1 K/uL (0.0-0.7); EOS % 1.9 % (0.0-4.0); HEMOGLOBIN 11.5 g/dL (11.0-16.0); LYMPH % 30.5 % (20.0-40.0); MEAN CORPUSCULAR HEMOGLOBIN 30.2 pg (27.0-31.0); MEAN CORPUSCULAR HGB CONC 34.3 g/dL (33.0-37.0); MEAN PLATELET VOLUME 8.5 fL (7.2-11.7); MONO # 0.4 K/uL (0.0-0.8); MONO % 6.7 % (0.0-10.0); NEUT % 60.3 % (50.0-75.0); RBC 3.82 Mil/uL (3.80-5.20); RED CELL DISTRIBUTION WIDTH 13.2 % (11.5-14.5); WHITE BLOOD COUNT 6.7 K/uL (4.8-10.8)
[2017-05-18 08:28] LABS: ALBUMIN 3.6 g/dL (3.5-5.0); CALCIUM 8.9 mg/dl (8.6-10.4)
[2017-05-18] MEDS: Metoprolol Succinate 50 mg XL Tab PO SCH (09:24)
[2017-05-18 09:39] VITALS: BP 142/91; PULSE 72; TEMP 97.6; O2SAT 97
[2017-05-18] MEDS ORDERED: Influenza Vaccine 60 mcg/0.5 mL SYR (4YR UP) IM ONE (10:00)
[2017-05-18] MEDS: Sodium Chloride 0.45% 1,000 ML IV SCH (10:21)
[2017-05-18] MEDS: cefTRIAXone 1 gm 1 GM/100 ML BAG IVPB SCH (10:23)
--- NOTE | 2017-05-18 11:09 | CP.PCM.DIS ---
Provider - Provider Date of Admission: 05/16/17 14:48 Attending physician: Francois Mayfield DO Primary care physician: [facility] Consults: Nephrology Time Spent in preparation of Discharge (in minutes): 29 Hospital Course - Lab Results Lab Results: Micro Results 05/16/17 20:26 Urine Urine Culture - Final No Growth (<1,000 CFU/ML) Most Recent Lab Values WBC 6.7 K/uL (4.8-10.8) 05/18/17 07:57 RBC 3.82 Mil/uL (3.80-5.20) 05/18/17 07:57 Hgb 11.5 g/dL (11.0-16.0) 05/18/17 07:57 Hct 33.6 % (34.0-47.0) L 05/18/17 07:57 MCV 88.0 fL (81.0-99.0) 05/18/17 07:57 MCH 30.2 pg (27.0-31.0) 05/18/17 07:57 MCHC 34.3 g/dL (33.0-37.0) 05/18/17 07:57 RDW 13.2 % (11.5-14.5) 05/18/17 07:57 Plt Count 231 K/uL (130-400) 05/18/17 07:57 MPV 8.5 fL (7.2-11.7) 05/18/17 07:57 Neut % (Auto) 60.3 % (50.0-75.0) 05/18/17 07:57 Lymph % (Auto) 30.5 % (20.0-40.0) 05/18/17 07:57 Irwin % (Auto) 6.7 % (0.0-10.0) 05/18/17 07:57 Eos % (Auto) 1.9 % (0.0-4.0) 05/18/17 07:57 Baso % (Auto) 0.6 % (0.0-2.0) 05/18/17 07:57 Neut # (Auto) 4.0 K/uL (1.8-7.0) 05/18/17 07:57 Lymph # (Auto) 2.0 K/uL (1.0-4.3) 05/18/17 07:57 Irwin # (Auto) 0.4 K/uL (0.0-0.8) 05/18/17 07:57 Eos # (Auto) 0.1 K/uL (0.0-0.7) 05/18/17 07:57 Baso # (Auto) 0.0 K/uL (0.0-0.2) 05/18/17 07:57 PT 10.8 SECONDS (9.7-12.2) 05/16/17 12:31 INR 1.0 05/16/17 12:31 APTT 32 SECONDS (21-34) 05/16/17 12:31 Sodium 140 mmol/L (132-148) 05/18/17 07:57 Potassium 3.9 mmol/L (3.6-5.2) 05/18/17 07:57 Chloride 109 mmol/L (98-107) H 05/18/17 07:57 Carbon Dioxide 19 mmol/L (22-30) L 05/18/17 07:57 Anion Gap 17 (10-20) 05/18/17 07:57 BUN 59 mg/dL (7-17) H 05/18/17 07:57 Creatinine 4.2 mg/dL (0.7-1.2) H 05/18/17 07:57 Est GFR ( Amer) 13 05/18/17 07:57 Est GFR (Non-Af Amer) 11 05/18/17 07:57 Random Glucose 94 mg/dL (65-105) 05/18/17 07:57 Calcium 8.9 mg/dl (8.6-10.4) 05/18/17 07:57 Total Bilirubin 0.4 mg/dL (0.2-1.3) 05/18/17 07:57 AST 22 U/L (14-36) 05/18/17 07:57 ALT 20 U/L (9-52) 05/18/17 07:57 Alkaline Phosphatase 120 U/L (38-126) 05/18/17 07:57 Total Creatine Kinase 201 U/L (30-135) H 05/16/17 12:31 CK-MB (Mass) 3.31 ng/mL (0.0-3.38) 05/16/17 12:31 Troponin I < 0.0120 ng/mL (0.00-0.120) 05/16/17 12:31 NT-Pro-B Natriuret Pep 710 pg/mL (0-900) 05/16/17 12:31 Total Protein 7.3 g/dL (6.3-8.3) 05/18/17 07:57 Albumin 3.6 g/dL (3.5-5.0) 05/18/17 07:57 Globulin 3.7 gm/dL (2.2-3.9) 05/18/17 07:57 Albumin/Globulin Ratio 1.0 (1.0-2.1) 05/18/17 07:57 Urine Color Yellow (YELLOW) 05/16/17 20:48 Urine Clarity Clear (Clear) 05/16/17 20:48 Urine pH 6.0 (5.0-8.0) 05/16/17 20:48 Ur Specific [place] 1.010 (1.003-1.030) 05/16/17 20:48 Urine Protein 3+ mg/dL (NEGATIVE) H 05/16/17 20:48 Urine Glucose (UA) 2+ mg/dL (Normal) H 05/16/17 20:48 Urine Ketones Negative mg/dL (NEGATIVE) 05/16/17 20:48 Urine Blood 1+ (NEGATIVE) H 05/16/17 20:48 Urine Nitrate Negative (NEGATIVE) 05/16/17 20:48 Urine Bilirubin Negative (NEGATIVE) 05/16/17 20:48 Urine Urobilinogen Normal mg/dL (0.2-1.0) 05/16/17 20:48 Ur Leukocyte Esterase 3+ Mario/uL (Negative) H 05/16/17 20:48 Urine WBC (Auto) 31 /hpf (0-5) H 05/16/17 20:48 Urine RBC (Auto) 5 /hpf (0-3) H 05/16/17 20:48 Ur Squamous Epith Cells 1 /hpf (0-5) 05/16/17 12:57 Urine Bacteria Occ (<OCC) H 05/16/17 20:48 Hyaline Casts 0-2 /lpf (0-2) 05/16/17 20:48 - Hospital Course Hospital Course: This is a very nice 61 year old female sent in from the clinic due to lab work showing a worsening renal function. Their concern was JESUS on CKD. Her baseline creatine appears to be about 2.5 however as of February 2017 and March 2017 her creatine has been 4.0. When she was first seen by us in the ER she was NOT short of breath, ambulating well in the ER. She was not acidotic and also potassium level was stable. We did a CXRAY and it was stable - she did not have any fluid build up on her lungs She was tried on IVF to see if this would help decrease the creatine however it remained 4.0 to 4.2 without changing. She did not have any shortness of breath or dyspnea on exertion. The K remained stable. She has had numerous U/S of the abdomen showing that she has right kidney hydropnephrosis as a chronic staghorn calculus - however it has been like this for the past 3 years. We repeated another ultrasound and it again showed the same finding. There was also a CT scan of the abdomen that again showed this same finding as well. With the help of a juvenile justice officer I explained to her that we will discharge her to home for now. But that she needs to follow up with the [facility] clinic on a regular basis for blood work to monitor her renal function and electrolyes. We explained to her that in the future she may need HD but fow now she needs to continue taking her BP medications as well as avoiding excessive salts in foods. She has an appointment on May 30, 2017 She should resume her BP medication as well as statin. There is an RX for augmentin PO BID Discharge Exam - Head Exam Head Exam: ATRAUMATIC, NORMAL INSPECTION - Eye Exam Eye Exam: EOMI, Normal appearance Pupil Exam: NORMAL ACCOMODATION - ENT Exam ENT Exam: Mucous Membranes Moist - Respiratory Exam Respiratory Exam: Clear to PA & Lateral, NORMAL BREATHING PATTERN, UNREMARKABLE - Cardiovascular Exam Cardiovascular Exam: REGULAR RHYTHM - GI/Abdominal Exam GI & Abdominal Exam: Normal Bowel Sounds, Unremarkable - Neurological Exam Neurological exam: Alert, CN II-XII Intact, Normal Gait, Oriented x3 - Psychiatric Exam Psychiatric exam: Normal Affect, Normal Mood - Skin Skin Exam: Normal Color, Warm Discharge Plan - Discharge Medications Prescriptions: Amoxicillin/Clavulanate [Augmentin 875 MG-125 MG] 1 tab PO BID #8 tab - Follow Up Plan Condition: STABLE Disposition: HOME/ ROUTINE Instructions: Renal Failure Diet (DC)
== END 2017-05-18 14:40 | disposition home or self-care (01) | DRG 316 ==
LOC: C.ER 10:03 → C.9E 14:48 → C.3T 16:05
PROVIDERS: ADMIT Hospitalist; ATTEND Hospitalist
DX: N17.9 Acute kidney failure, unspecified (principal); N13.8 Other obstructive and reflux uropathy; N39.0 Urinary tract infection, site not specified; N13.2 Hydronephrosis with renal and ureteral calculous obstruction; E78.00 Pure hypercholesterolemia, unspecified; I12.9 Hypertensive chronic kidney disease with stage 1 through stage 4 chronic kidney disease, or unspecified chronic kidney disease; N18.4 Chronic kidney disease, stage 4 (severe); Z86.73 Personal history of transient ischemic attack (TIA), and cerebral infarction without residual deficits

== ENCOUNTER 2018-06-04 15:07 | Inpatient (IN) | payer OTHER ==
[2018-06-04 15:33] VITALS: BMI 33.3
[2018-06-04] MEDS ORDERED: Sodium Chloride 0.9% 1,000 ML IV ONE (15:59)
[2018-06-04] MEDS ORDERED: Sodium Chloride 0.9% 1,000 ML ONE (16:09)
--- NOTE | 2018-06-04 16:11 | C.PDOC ---
History Of Present Illness 62 year old female presents to the ED for evaluation of nausea, vomiting and crampy abdominal pain which began 3 days ago. Patient states she has been unable to tolerate PO intake. She denies fever, chills, and diarrhea at this time. Time Seen by Provider: 06/04/18 15:46 Chief Complaint (Nursing): Abdominal Pain History Per: Patient History/Exam Limitations: no limitations Onset/Duration Of Symptoms: Days (3) Current Symptoms Are (Timing): Still Present Quality Of Discomfort: "Pain" Associated Symptoms: Nausea, Vomiting. denies: Fever, Diarrhea Past Medical History Reviewed: Historical Data, Nursing Documentation, Vital Signs Vital Signs: Last Vital Signs Temp 98.5 F 06/04/18 15:32 Pulse 63 06/04/18 15:32 Resp 20 06/04/18 15:32 BP 183/85 H 06/04/18 15:32 Pulse Ox 99 06/04/18 15:32 - Medical History PMH: HTN, Hypercholesterolemia, Chronic Kidney Disease Surgical History: No Surg Hx - [facility] Procedures DRAINAGE OF RIGHT KIDNEY WITH DRAINAGE DEVICE, PERC APPROACH (01/11/16) Family History: States: Unknown Family Hx - Social History Hx Tobacco Use: No Hx Alcohol Use: No Hx Substance Use: No - Immunization History Hx Tetanus Toxoid Vaccination: No Hx Influenza Vaccination: No Hx Pneumococcal Vaccination: No Review Of Systems Constitutional: Negative for: Fever, Chills Gastrointestinal: Positive for: Nausea, Vomiting, Abdominal Pain. Negative for: Diarrhea Physical Exam - Physical Exam Appears: Non-toxic, No Acute Distress Skin: Normal Color, Warm, Dry Head: Atraumatic, Normacephalic Eye(s): bilateral: Normal Inspection Oral Mucosa: Dry Neck: Supple Chest: Symmetrical Cardiovascular: Rhythm Regular Respiratory: Normal Breath Sounds Gastrointestinal/Abdominal: Soft, Tenderness (mild, upper abdomen ), No Guarding, No Rebound Extremity: Normal ROM, Capillary Refill (less than 2 seconds ) Neurological/Psych: Oriented x3, Normal Speech, Normal Cognition Gait: Steady ED Course And Treatment - Laboratory Results Result Diagrams: 06/04/18 16:17 06/04/18 16:17 Lab Interpretation: Abnormal ECG: Interpreted By Me ECG Rhythm: Sinus Rhythm, Nonspecific Changes Rate From EC O2 Sat by Pulse Oximetry: 99 (on RA) Pulse Ox Interpretation: Normal - Radiology CXR: Interpreted by Me CXR Interpretation: Yes: No Acute Disease - CT Scan/US No standard instances Other Rad Studies (CT/US): Read By Radiologist, Radiology Report Reviewed CT/US Interpretation: FINDINGS: LOWER THORAX: Mild passive/dependent type atelectasis both posterior lower lung boucher. No acute consolidation. No evidence of effusion or basilar pneumothorax. LIVER: Liver exhibits normal size and attenuation pattern. No obvious hepatic masses collections or calcifications. GALLBLADDER AND BILE DUCTS: Cholelithiasis again noted. PANCREAS: Unremarkable. No mass. No ductal dilatation. SPLEEN: Unremarkable. No splenomegaly. ADRENALS: There are no adrenal lesions seen. KIDNEYS AND URETERS: There is a large staghorn calculus with adjacent multiple smaller calcifications. Significant hydronephrosis with a a surrounding thin ribbon of atrophic cortex. Tiny approximately 2.4 mm calcification upper/midpole left k idney unchanged. Kidney remains lobulated with what probably represents few tiny cortical exophytic cortical cysts. BLADDER: Grossly unremarkable.. Urinary bladder is incompletely distended which presumably in part accounts for slight thick-walled appearance. Cystitis should be excluded with urinalysis correlation. REPRODUCTIVE: Redemonstrated is a an approximately 2.5 by 1.3 cm left adnexal cyst. Follow-up pelvic ultrasound could be performed for further evaluation. APPENDIX: Normal-appearing appendix. BOWEL: Evaluation of the bowel is somewhat limited due to the lack of oral contrast material. The stomach is distended with food debris liquid and air.. There are several on mildly distended loops of small bowel in the left upper and mid abdomen possibly representing a mild ileus.. No significant mural wall thickening of the colon. PERITONEUM: Unremarkable. No fluid collection. No free air. LYMPH NODES: Unremarkable. No enlarged lymph nodes. VASCULATURE: Unremarkable. No aortic aneurysm. Mild aortic atherosclerotic calcification or mural plaque present. BONES: Mild multilevel degenerative spondylosis of the thoracic and lumbar spine. OTHER FINDINGS: None. IMPRESSION: Large right-sided staghorn calculus with multiple additional relatively large adjacent calculi within a severely hydronephrotic kidney demonstrating a thin rim of peripheral cortex. Nonobstruc ting 2.4 mm calculus left kidney as described. No evidence of left-sided hydronephrosis. Urinary bladder incompletely distended with slight thick-walled appearance. Rule out cystitis. Left adnexal cyst. Consider follow-up pelvic ultrasound. Cholelithiasis. Progress Note: Bloodwork, urinalysis, CT A/P ordered and reviewed. Zofran IVP and IV Fluids given. Case discussed with Dr Davis who request ICU consult. Case discussed with ICU hospitalist who refused patient. Case discussed with Dr Rich garcia MD who knows patient and will evaluate tomorrow. Case disc ussed with Dr Nicole garcia for urology who will consult on patient Reassessment Condition: Unchanged - Physician Consult Information Physician Contacted: Nida Davis Outcome Of Conversation: admit to telemetry Disposition Discussed With Dr.: Nida Davis Doctor Will See Patient In The: Hospital - Disposition Disposition: HOSPITALIZED Disposition Time: 18:00 Condition: STABLE Forms: [employer] (Ecuadorean) - POA Present On Arrival: None - Clinical Impression Clinical Impression: Acute renal failure, Anemia - PA / STEEPLECHASE JOCKEY / Resident Statement MD/DO has reviewed & agrees with the documentation as recorded. - Scribe Statement The provider has reviewed the documentation as recorded by the Scribe (María Johnson) All medical record entries made by the Scribe were at my direction and personally dictated by me. I have reviewed the chart and agree that the record accurately reflects my personal performance of the history, physical exam, medical decision making, and the department course for this patient. I have also personally directed, reviewed, and agree with the discharge instructions and disposition. Decision To Admit - Pt Status Changed To: Hospital Disposition Of: Inpatient - Admit Certification Admit to Inpatient:: After my assessment, the patient will require hospitalization for at least two midnights. This is because of the severity of symptoms shown, intensity of services needed, and/or the medical risk in this patient being treated as an outpatient. - InPatient: Physician Admission Certification:: Acute renal failure - . Bed Request Type: Telemetry Admitting Physician: Nida Davis Patient Diagnosis: Acute renal failure, Anemia
[2018-06-04 16:26] LABS: SQUAMOUS EPITHIAL < 1 /hpf (0-5); URINE BACTERIA RARE (<OCC); URINE BILIRUBIN NEGATIVE (NEGATIVE); URINE BLOOD NEGATIVE (NEGATIVE); URINE CLARITY Clear (Clear); URINE COLOR Straw (YELLOW); URINE GLUCOSE (UA) 1+ mg/dL (Normal); URINE LEUKOCYTE ESTERASE 2+ Leu/uL (Negative); URINE PROTEIN 2+ mg/dL (NEGATIVE); URINE UROBILINOGEN NORMAL mg/dL (0.2-1.0)
[2018-06-04 16:35] LABS: BASO # 0.1 K/uL (0.0-0.2); BASO % 0.7 % (0.0-2.0); EOS # 0.1 K/uL (0.0-0.7); EOS % 1.4 % (0.0-4.0); HEMOGLOBIN 7.8 g/dL (11.0-16.0); LYMPH # 1.6 K/uL (1.0-4.3); LYMPH % 20.1 % (20.0-40.0); MEAN CELL VOLUME 93.2 fL (81.0-99.0); MEAN CORPUSCULAR HGB CONC 32.1 g/dL (33.0-37.0); MEAN PLATELET VOLUME 7.1 fL (7.2-11.7); MONO # 0.6 K/uL (0.0-0.8); MONO % 7.4 % (0.0-10.0); NEUT # 5.7 K/uL (1.8-7.0); NEUT % 70.4 % (50.0-75.0); NRBC % 0.1 % (0.0-2.0); RBC 2.6 Mil/uL (3.80-5.20); RED CELL DISTRIBUTION WIDTH 13.8 % (11.5-14.5)
[2018-06-04 16:57] LABS: ALB/GLOB RATIO 1.2 (1.0-2.1); ALBUMIN 3.8 g/dL (3.5-5.0); CALCIUM 6.9 mg/dl (8.6-10.4)
--- NOTE | 2018-06-04 17:53 | CT ---
Date of service: 06/04/2018 PROCEDURE: CT abdomen and pelvis HISTORY: Pain COMPARISON: Comparison made with prior CT scan dated 05/17 2017. TECHNIQUE: Contiguous axial images of the abdomen and pelvis performed without oral or intravenous contrast material. Additional 2D sagittal and coronal reformats generated reformats generated. Radiation dose: Total exam DLP = 610.43 mGy-cm. This CT exam was performed using one or more of the following dose reduction techniques: Automated exposure control, adjustment of the mA and/or kV according to patient size, and/or use of iterative reconstruction technique. FINDINGS: LOWER THORAX: Mild passive/dependent type atelectasis both posterior lower lung boucher. No acute consolidation. No evidence of effusion or basilar pneumothorax. LIVER: Liver exhibits normal size and attenuation pattern. No obvious hepatic masses collections or calcifications. GALLBLADDER AND BILE DUCTS: Cholelithiasis again noted. PANCREAS: Unremarkable. No mass. No ductal dilatation. SPLEEN: Unremarkable. No splenomegaly. ADRENALS: There are no adrenal lesions seen. KIDNEYS AND URETERS: There is a large staghorn calculus with adjacent multiple smaller calcifications. Significant hydronephrosis with a a surrounding thin ribbon of atrophic cortex. Tiny approximately 2.4 mm calcification upper/midpole left kidney unchanged. Kidney remains lobulated with what probably represents few tiny cortical exophytic cortical cysts BLADDER: Grossly unremarkable.. Urinary bladder is incompletely distended which presumably in part accounts for slight thick-walled appearance. Cystitis should be excluded with urinalysis correlation. REPRODUCTIVE: Redemonstrated is a an approximately 2.5 by 1.3 cm left adnexal cyst. Follow-up pelvic ultrasound could be performed for further evaluation. APPENDIX: Normal-appearing appendix. BOWEL: Evaluation of the bowel is somewhat limited due to the lack of oral contrast material. The stomach is distended with food debris liquid and air.. There are several on mildly distended loops of small bowel in the left upper and mid abdomen possibly representing a mild ileus.. No significant mural wall thickening of the colon. PERITONEUM: Unremarkable. No fluid collection. No free air. LYMPH NODES: Unremarkable. No enlarged lymph nodes. VASCULATURE: Unremarkable. No aortic aneurysm. Mild aortic atherosclerotic calcification or mural plaque present. BONES: Mild multilevel degenerative spondylosis of the thoracic and lumbar spine OTHER FINDINGS: None. IMPRESSION: Large right-sided staghorn calculus with multiple additional relatively large adjacent calculi within a severely hydronephrotic kidney demonstrating a thin rim of peripheral cortex. Nonobstructing 2.4 mm calculus left kidney as described. No evidence of left-sided hydronephrosis. Urinary bladder incompletely distended with slight thick-walled appearance. Rule out cystitis. Left adnexal cyst. Consider follow-up pelvic ultrasound. Cholelithiasis.
[2018-06-04 18:00] LABS: VENOUS BLOOD GAS PCO2 39 mmHg (40-60); VENOUS BLOOD GAS PO2 20 mm/Hg (30-55); VENOUS BLOOD PH 7.14 (7.32-7.43)
--- NOTE | 2018-06-04 18:57 | RAD ---
Date of service: 06/04/2018 HISTORY: Cough r/o CHF COMPARISON: Comparison made with chest radiograph dated 05/17/2017. TECHNIQUE: Chest PA and lateral FINDINGS: LUNGS: Poor inspiration low lung volumes and crowded and increased interstitial markings; ; rule out chronic changes of COPD or viral illness. Possibility of mild chronic compensated pulmonary venous congestion not completely excluded. Mild biapical pleural thickening. PLEURA: No significant pleural effusion identified. No pneumothorax apparent. CARDIOVASCULAR: No aortic atherosclerotic calcification present. Normal cardiac size. No pulmonary vascular congestion. OSSEOUS STRUCTURES: No significant abnormalities. VISUALIZED UPPER ABDOMEN: Normal. OTHER FINDINGS: None. IMPRESSION: Poor inspiration low lung volumes and crowded and increased interstitial markings; ; rule out chronic changes of COPD or viral illness. Possibility of mild chronic compensated pulmonary venous congestion not completely excluded. Mild biapical pleural thickening.
--- NOTE | 2018-06-04 18:58 | CP.PCM.HP ---
<Candelario Santo - Last Filed: 06/05/18 05:17> History of Present Illness - History of Present Illness History of Present Illness: H&P for hospitalist Dr. Youssef 62 year old female with PMHx of HTN, hypercholesterolemia, CKD stage 3, and nephrolithiasis presents to ED for epigastric pain & vomiting X 3 days. Patient states epigastric pain is non radiating, gradually worsened and now is constant 8/10. Patient reports pain to bilateral back. Patient reports vomiting as non bilious, non bloody that is triggered by food. Patient reports several episodes of vomiting through each day. Patient additionally complains that she has difficulty walking more than 1 block due to SOB. Patient reports being able to walk 3+ blocks previously. Patient denies recent illness & travel. ROS: Denies chest pain, cough, diarrhea, constipation, fevers, chills. Patient reports fatigue, generalized body aches and dizziness when walking. PMHx: CKD stage 3, HTN, HLD, R staghorn calculus Medication: Metoprolol ER 50 mg daily, Losartan 40 mg daily PSHx: Allergies: NKDA FHx: Mother has AR at age 68. Father had asthma. Social Hx: Pt denies tobacco usage, EtOH, or any illicit drug consumption. Pt has not recently travelled or underwent prolonged car rides. Present on Admission - Present on Admission Any Indicators Present on Admission: No History of DVT/PE: No History of Uncontrolled Diabetes: No Urinary Catheter: No Decubitus Ulcer Present: No Review of Systems - Review of Systems All systems: reviewed and no additional remarkable complaints except - Constitutional Constitutional: As Per HPI Past Patient History - Past Medical History & Family History Past Medical History?: Yes - Past Social History Smoking Status: Never Smoked - CARDIAC Hx Hypercholesterolemia: Yes Hx Hypertension: Yes - NEUROLOGICAL Hx Neurological Disorder: Yes HX Cerebrovascular Accident: Yes (treated three years ago at [facility] in [facility]) - MUSCULOSKELETAL/RHEUMATOLOGICAL Hx Falls: No - PSYCHIATRIC Hx Substance Use: No - SURGICAL HISTORY Hx Surgeries: Yes Hx Section: Yes - ANESTHESIA Hx Anesthesia: No Meds Allergies/Adverse Reactions: Allergies Allergy/AdvReac Type Severity Reaction Status Date / Time No Known Allergies Allergy Verified 05/16/17 10:33 Physical Exam - Constitutional Appears: Non-toxic, No Acute Distress - Head Exam Head Exam: NORMAL INSPECTION - Eye Exam Eye Exam: EOMI, Normal appearance - ENT Exam ENT Exam: Mucous Membranes Moist - Respiratory Exam Respiratory Exam: Clear to Auscultation Bilateral, NORMAL BREATHING PATTERN. absent: Rales, Rhonchi, Wheezes - Cardiovascular Exam Cardiovascular Exam: +S1, +S2 - GI/Abdominal Exam GI & Abdominal Exam: Normal Bowel Sounds, Soft, Tenderness. absent: Firm, Guarding Additional comments: Epigastric tenderness - Extremities Exam Extremities exam: Positive for: calf tenderness, tenderness. Negative for: pedal edema Additional comments: tenderness through out legs - Back Exam Back exam: CVA tenderness (R). absent: CVA tenderness (L) - Neurological Exam Neurological exam: Alert, Oriented x3 - Psychiatric Exam Psychiatric exam: Normal Affect, Normal Mood - Skin Skin Exam: Dry, Intact, Normal Color, Warm Results - Vital Signs Recent Vital Signs: Last Vital Signs Temp 98.5 F 06/04/18 15:32 Pulse 63 06/04/18 15:32 Resp 20 06/04/18 15:32 BP 183/85 H 06/04/18 15:32 Pulse Ox 99 06/04/18 17:52 - Labs Result Diagrams: 06/04/18 16:17 06/04/18 16:17 Labs: Laboratory Results - last 24 hr 06/04/18 06/04/18 06/04/18 16:17 16:17 16:17 WBC 8.0 RBC 2.60 L Hgb 7.8 L Hct 24.3 L MCV 93.2 MCH 30.0 MCHC 32.1 L RDW 13.8 Plt Count 233 MPV 7.1 L Neut % (Auto) 70.4 Lymph % (Auto) 20.1 Garrard % (Auto) 7.4 Eos % (Auto) 1.4 Baso % (Auto) 0.7 Neut # (Auto) 5.7 Lymph # (Auto) 1.6 Garrard # (Auto) 0.6 Eos # (Auto) 0.1 Baso # (Auto) 0.1 pO2 VBG pH VBG pCO2 VBG HCO3 VBG Total CO2 VBG O2 Sat (Calc) VBG Base Excess VBG Potassium Glucose Lactate Crit Value Called To Crit Value Called By Crit Value Read Back Blood Gas Notified Time Sodium 141 Potassium 5.2 Chloride 112 H Carbon Dioxide 15 L Anion Gap 19 BUN 106 H* Creatinine 11.3 H* D Est GFR ( Amer) 4 Est GFR (Non-Af Amer) 3 Random Glucose 129 H D Calcium 6.9 L Total Bilirubin 0.2 AST 16 ALT 8 L Alkaline Phosphatase 123 Total Protein 7.0 Albumin 3.8 Globulin 3.2 Albumin/Globulin Ratio 1.2 Lipase 555 H Venous Blood Potassium Urine Color Straw Urine Clarity Clear Urine pH 5.0 Ur Specific [place] 1.011 Urine Protein 2+ H Urine Glucose (UA) 1+ Urine Ketones Negative Urine Blood Negative Urine Nitrate Negative Urine Bilirubin Negative Urine Urobilinogen Normal Ur Leukocyte Esterase 2+ H Urine WBC (Auto) 30 H Urine RBC (Auto) 1 Ur Squamous Epith Cells < 1 Urine Bacteria Rare 06/04/18 17:51 WBC RBC Hgb Hct MCV MCH MCHC RDW Plt Count MPV Neut % (Auto) Lymph % (Auto) Garrard % (Auto) Eos % (Auto) Baso % (Auto) Neut # (Auto) Lymph # (Auto) Garrard # (Auto) Eos # (Auto) Baso # (Auto) pO2 20 L VBG pH 7.14 L* VBG pCO2 39 L VBG HCO3 11.1 VBG Total CO2 14.5 L VBG O2 Sat (Calc) 38.0 L VBG Base Excess -15.0 L VBG Potassium 4.8 Glucose 112 H Lactate 0.6 L Crit Value Called To Dr patel Crit Value Called By Too cornejo Crit Value Read Back Y Blood Gas Notified Time 1800 Sodium 142.0 Potassium Chloride 118.0 H Carbon Dioxide Anion Gap BUN Creatinine Est GFR ( Amer) Est GFR (Non-Af Amer) Random Glucose Calcium Total Bilirubin AST ALT Alkaline Phosphatase Total Protein Albumin Globulin Albumin/Globulin Ratio Lipase Venous Blood Potassium 4.8 Urine Color Urine Clarity Urine pH Ur Specific [place] Urine Protein Urine Glucose (UA) Urine Ketones Urine Blood Urine Nitrate Urine Bilirubin Urine Urobilinogen Ur Leukocyte Esterase Urine WBC (Auto) Urine RBC (Auto) Ur Squamous Epith Cells Urine Bacteria Assessment & Plan - Assessment and Plan (Free Text) Assessment: 62 F w/ PMhx of CKD, HTN, R staghorn caliculus presents to ED for epigastric pain & vomiting, found to be in acute on chronic renal failure, UTI & gastritis Plan: Acute on Chronic renal failure - BUN/ Cr 106/11.3; previously 50s/6s - likely due to dehydration 2/2 to vomiting - f/u nephrology recs - NS @ 75 mls/hr - zofran 4 mg IVP Q6H PRN Gastritis - several episodes of vomiting - Lipase 555 - Clear liquid diet; advance as tolerated - Zofran 4mg IVP Q6H PRN - Protonix 40 mg IVP daily Acute on chronic anemia - hgb 7.8, previously 9s - MCV 93.2 - chronic anemia likely due to CKD - will monitor overnight - f/u stool occult - F/u iron, ferritin, retic count - transfuse PRBCs pending symptoms Nephrolithaisis Hydronephrotic kidney - R flank tenderness - CT abd/ pelvis: Large right-sided staghorn calculus with multiple additional relatively large adjacent calculi within a severely hydronephrotic kidney demonstrating a thin rim of peripheral cortex. Nonobstructing 2.4 mm calculus left kidney as described. No evidence of left-sided hydronephrosis - F/u urology recs - NS @ 75 mls/hr UTI - UA: leuk esterase 2+, WBC 30 - F/u UC - Ceftriaxone 1g Q24H Exertional dsypnea - D-dimmer negative - unlikely PE/DVT - F/u ECHO History of HTN History of HLD - continue with home medications metoprolol succinate 50 mg PO daily, rosuvastatin 5 mg PO HS PPx - DVT: VTE contraindicated due to acute anemia change, SCDs contraindicated due to leg crams/pain - GI: Protonix 40 IV Q24 - Clear liquid diet, advance as tolerated <Julito Youssef - Last Filed: 06/05/18 06:31> Results - Vital Signs Recent Vital Signs: Last Vital Signs Temp 97.8 F 06/05/18 00:00 Pulse 70 06/05/18 00:00 Resp 19 06/05/18 00:00 BP 149/83 06/05/18 00:00 Pulse Ox 100 06/05/18 00:00 - Labs Result Diagrams: 06/04/18 16:17 06/04/18 16:17 Labs: Laboratory Results - last 24 hr 06/04/18 06/04/18 06/04/18 16:17 16:17 16:17 WBC 8.0 RBC 2.60 L Hgb 7.8 L Hct 24.3 L MCV 93.2 MCH 30.0 MCHC 32.1 L RDW 13.8 Plt Count 233 MPV 7.1 L Neut % (Auto) 70.4 Lymph % (Auto) 20.1 Garrard % (Auto) 7.4 Eos % (Auto) 1.4 Baso % (Auto) 0.7 Neut # (Auto) 5.7 Lymph # (Auto) 1.6 Garrard # (Auto) 0.6 Eos # (Auto) 0.1 Baso # (Auto) 0.1 Retic Count pO2 VBG pH VBG pCO2 VBG HCO3 VBG Total CO2 VBG O2 Sat (Calc) VBG Base Excess VBG Potassium Glucose Lactate Crit Value Called To Crit Value Called By Crit Value Read Back Blood Gas Notified Time Sodium 141 Potassium 5.2 Chloride 112 H Carbon Dioxide 15 L Anion Gap 19 BUN 106 H* Creatinine 11.3 H* D Est GFR ( Amer) 4 Est GFR (Non-Af Amer) 3 Random Glucose 129 H D Calcium 6.9 L Iron TIBC % Saturation Ferritin Total Bilirubin 0.2 AST 16 ALT 8 L Alkaline Phosphatase 123 Total Protein 7.0 Albumin 3.8 Globulin 3.2 Albumin/Globulin Ratio 1.2 Lipase 555 H Venous Blood Potassium Urine Color Straw Urine Clarity Clear Urine pH 5.0 Ur Specific [place] 1.011 Urine Protein 2+ H Urine Glucose (UA) 1+ Urine Ketones Negative Urine Blood Negative Urine Nitrate Negative Urine Bilirubin Negative Urine Urobilinogen Normal Ur Leukocyte Esterase 2+ H Urine WBC (Auto) 30 H Urine RBC (Auto) 1 Ur Squamous Epith Cells < 1 Urine Bacteria Rare 06/04/18 06/04/18 06/04/18 17:51 21:22 21:22 WBC RBC Hgb Hct MCV MCH MCHC RDW Plt Count MPV Neut % (Auto) Lymph % (Auto) Garrard % (Auto) Eos % (Auto) Baso % (Auto) Neut # (Auto) Lymph # (Auto) Garrard # (Auto) Eos # (Auto) Baso # (Auto) Retic Count 4.3 H pO2 20 L VBG pH 7.14 L* VBG pCO2 39 L VBG HCO3 11.1 VBG Total CO2 14.5 L VBG O2 Sat (Calc) 38.0 L VBG Base Excess -15.0 L VBG Potassium 4.8 Glucose 112 H Lactate 0.6 L Crit Value Called To Dr patel Crit Value Called By Too cornejo Crit Value Read Back Y Blood Gas Notified Time 1800 Sodium 142.0 Potassium Chloride 118.0 H Carbon Dioxide Anion Gap BUN Creatinine Est GFR ( Amer) Est GFR (Non-Af Amer) Random Glucose Calcium Iron 57 TIBC 204 L % Saturation 28 Ferritin Total Bilirubin AST ALT Alkaline Phosphatase Total Protein Albumin Globulin Albumin/Globulin Ratio Lipase Venous Blood Potassium 4.8 Urine Color Urine Clarity Urine pH Ur Specific [place] Urine Protein Urine Glucose (UA) Urine Ketones Urine Blood Urine Nitrate Urine Bilirubin Urine Urobilinogen Ur Leukocyte Esterase Urine WBC (Auto) Urine RBC (Auto) Ur Squamous Epith Cells Urine Bacteria 06/04/18 21:22 WBC RBC Hgb Hct MCV MCH MCHC RDW Plt Count MPV Neut % (Auto) Lymph % (Auto) Garrard % (Auto) Eos % (Auto) Baso % (Auto) Neut # (Auto) Lymph # (Auto) Garrard # (Auto) Eos # (Auto) Baso # (Auto) Retic Count pO2 VBG pH VBG pCO2 VBG HCO3 VBG Total CO2 VBG O2 Sat (Calc) VBG Base Excess VBG Potassium Glucose Lactate Crit Value Called To Crit Value Called By Crit Value Read Back Blood Gas Notified Time Sodium Potassium Chloride Carbon Dioxide Anion Gap BUN Creatinine Est GFR ( Amer) Est GFR (Non-Af Amer) Random Glucose Calcium Iron TIBC % Saturation Ferritin 124.0 Total Bilirubin AST ALT Alkaline Phosphatase Total Protein Albumin Globulin Albumin/Globulin Ratio Lipase Venous Blood Potassium Urine Color Urine Clarity Urine pH Ur Specific [place] Urine Protein Urine Glucose (UA) Urine Ketones Urine Blood Urine Nitrate Urine Bilirubin Urine Urobilinogen Ur Leukocyte Esterase Urine WBC (Auto) Urine RBC (Auto) Ur Squamous Epith Cells Urine Bacteria Assessment & Plan - Date & Time Date: 06/05/18 (I have seen and examined the patient. I agree with the findings and plan of care as documented by Dr. Santo. Patient with acute renal failure. IVF. Consult to nephro. Acute gastritis. Protonix. Symptomatic treatment. Anemia. Iron studies. Follow CBC. Transfuse as needed. UTI. Urine and blood cultures. Rocephin for now. Monitor for acute changes.) Time: 06:30 Attending/Attestation - Attestation I have personally seen and examined this patient.: Yes I have fully participated in the care of the patient.: Yes I have reviewed all pertinent clinical information: Yes
[2018-06-04] MEDS ORDERED: Metoprolol 1 mg/ml Inj IVP ONE (20:37)
[2018-06-04 21:43] LABS: IRON 57 ug/dL (37-170)
[2018-06-04] MEDS: Sodium Chloride 0.9% 1,000 ML IV SCH (21:44)
[2018-06-04 21:52] LABS: % IRON SATURATION 28 (20-55); TOTAL IRON BINDING CAPACITY 204 ug/dL (250-450)
--- NOTE | 2018-06-05 07:47 | CP.PCM.PN ---
<Katelin Vázquez - Last Filed: 06/05/18 17:19> Subjective - Date & Time of Evaluation Date of Evaluation: 06/05/18 Time of Evaluation: 07:46 - Subjective Subjective: PGY-1 Katelin Vázquez D.O. Medicine progress note for Dr. Devine's service: Patient was seen and examined this morning. She states that she is feeling much better. Abdominal pain and vomiting have resolved. She is tolerating clear liquids. She expresses that she is scared to receive dialysis because she believes that it will hasten her . Objective - Vital Signs/Intake and Output Vital Signs (last 24 hours): Temp Pulse Resp BP Pulse Ox 97.8 F 70 19 149/83 100 06/05/18 00:00 06/05/18 00:00 06/05/18 00:00 06/05/18 00:00 06/05/18 00:00 Intake and Output: 06/05/18 06/05/18 06:59 18:59 Intake Total 350 Balance 350 - Medications Medications: Current Medications Acetaminophen (Tylenol 325mg Tab) 650 mg PO Q6 PRN PRN Reason: Pain, moderate (4-7) Ceftriaxone Sodium (Rocephin Iv 1 Gm Duplex) 50 mls @ 100 mls/hr IVPB DAILY [facility]; Protocol Sodium Chloride (Sodium Chloride 0.9%) 1,000 mls @ 75 mls/hr IV .[id number] [facility] Last Admin: 06/04/18 21:44 Dose: 75 mls/hr Metoprolol Succinate (Toprol Xl) 50 mg PO DAILY [facility] Ondansetron HCl (Zofran Inj) 4 mg IVP Q6H PRN PRN Reason: Nausea/Vomiting Pantoprazole Sodium (Protonix Inj) 40 mg IVP DAILY [facility] Rosuvastatin Calcium (Crestor) 5 mg PO HS JESSICA - Labs Labs: 06/04/18 16:17 06/04/18 16:17 - Constitutional Appears: No Acute Distress - Head Exam Head Exam: ATRAUMATIC, NORMAL INSPECTION - Eye Exam Eye Exam: EOMI, Normal appearance - ENT Exam ENT Exam: Mucous Membranes Moist - Respiratory Exam Respiratory Exam: Clear to Ausculation Bilateral, NORMAL BREATHING PATTERN - Cardiovascular Exam Cardiovascular Exam: REGULAR RHYTHM, +S1, +S2 - GI/Abdominal Exam GI & Abdominal Exam: Soft, Normal Bowel Sounds. absent: Tenderness Assessment and Plan - Assessment and Plan (Free Text) Assessment: 62 F with PMH of CKD, HTN, R staghorn caliculus presents to ED for epigastric pain and vomiting. Found to be in acute on chronic renal failure, UTI, and pancreatitis. Patient clinically improved. She is refusing dialysis. Plan: Acute on Chronic renal failure - BUN/Cr 106/11.3 on admission--> 109/10.9 (previously 50s/6s) - Monitor BMP - NS @ 75 mL/hr - Phoslo 667 mg PO TID - Sodium bicarb 650 mg PO BID - Nephrology consulted (Deandre)- patient refusing dialysis Pancreatitis, acute - Denies alcohol use - Lipase 555 - f/u AM - Abdominal US pending - Lipid panel pending - Clear liquid diet - Tylenol 650 mg PO Q6H PRN - Zofran 4mg IVP Q6H PRN - Protonix 40 mg IVP daily - Consider GI consult if no improvement Acute on chronic anemia - Hgb 7.8-->7.7 (previously 9s) - MCV 93.2 - Monitor H&H - f/u stool occult - Iron studies wnl - Reticulocyte count 4.3 - Consider EPO Urinary tract infection, acute - UA: leuk esterase 2+, WBC 30 - F/u UCx - Ceftriaxone 1g Q24H- started 06/04 Nephrolithaisis with Hydronephrotic kidney, chronic - CT abd/ pelvis: Large right-sided staghorn calculus with multiple additional relatively large adjacent calculi within a severely hydronephrotic kidney demonstrating a thin rim of peripheral cortex. Nonobstructing 2.4 mm calculus left kidney as described. No evidence of left-sided hydronephrosis - NS @ 75 mls/hr - Urology consulted (Nicole) Exertional dyspnea, resolved - D-dimer negative - Echo: EF 60-65%, mild AR Hypertension, chronic - Continue with home medication metoprolol succinate 50 mg PO daily Hyperlipidemia, chronic - Crestor 5 mg PO HS Ppx: VTE: contraindicated due to acute anemia change, SCDs contraindicated due to leg crams/pain GI: Protonix 40 IV daily Dispo: Monitor BMP. F/u pancreatitis work-up Case was discussed with attending, Dr. Devine. <Emerson Devine - Last Filed: 06/05/18 19:04> Objective - Vital Signs/Intake and Output Vital Signs (last 24 hours): Temp Pulse Resp BP Pulse Ox 97.5 F L 60 20 155/80 H 100 06/05/18 15:00 06/05/18 16:00 06/05/18 15:00 06/05/18 15:00 06/05/18 15:00 - Medications Medications: Current Medications Acetaminophen (Tylenol 325mg Tab) 650 mg PO Q6 PRN PRN Reason: Pain, moderate (4-7) Calcium Acetate (Phoslo) 667 mg PO TID [facility] Ceftriaxone Sodium (Rocephin Iv 1 Gm Duplex) 50 mls @ 100 mls/hr IVPB DAILY [facility]; Protocol Last Admin: 06/05/18 09:56 Dose: 100 mls/hr Sodium Chloride (Sodium Chloride 0.9%) 1,000 mls @ 75 mls/hr IV .[id number] [facility] Last Admin: 06/05/18 17:15 Dose: 75 mls/hr Metoprolol Succinate (Toprol Xl) 50 mg PO DAILY [facility] Last Admin: 06/05/18 09:57 Dose: 50 mg Ondansetron HCl (Zofran Inj) 4 mg IVP Q6H PRN PRN Reason: Nausea/Vomiting Last Admin: 06/05/18 17:14 Dose: 4 mg Pantoprazole Sodium (Protonix Inj) 40 mg IVP DAILY [facility] Last Admin: 06/05/18 09:57 Dose: 40 mg Rosuvastatin Calcium (Crestor) 5 mg PO HS [facility] Sodium Bicarbonate (Sodium Bicarbonate Tab) 650 mg PO BID [facility] - Labs Labs: 06/05/18 09:04 06/05/18 09:04 Attending/Attestation - Attestation I have personally seen and examined this patient.: Yes I have fully participated in the care of the patient.: Yes I have reviewed all pertinent clinical information, including history, physical exam and plan: Yes Notes (Text): Acute on Chronic renal failure Pancreatitis, acute
[2018-06-05 08:07] VITALS: RESP 20
[2018-06-05 09:16] LABS: BASO % 0.4 % (0.0-2.0); EOS # 0.1 K/uL (0.0-0.7); EOS % 1.6 % (0.0-4.0); HEMOGLOBIN 7.7 g/dL (11.0-16.0); LYMPH # 2.2 K/uL (1.0-4.3); LYMPH % 24.6 % (20.0-40.0); MEAN CELL VOLUME 93.6 fL (81.0-99.0); MEAN CORPUSCULAR HEMOGLOBIN 30.1 pg (27.0-31.0); MEAN CORPUSCULAR HGB CONC 32.2 g/dL (33.0-37.0); MEAN PLATELET VOLUME 7.5 fL (7.2-11.7); MONO # 0.6 K/uL (0.0-0.8); MONO % 7.2 % (0.0-10.0); NEUT # 5.9 K/uL (1.8-7.0); NEUT % 66.2 % (50.0-75.0); RBC 2.55 Mil/uL (3.80-5.20); RED CELL DISTRIBUTION WIDTH 13.8 % (11.5-14.5); WHITE BLOOD COUNT 8.9 K/uL (4.8-10.8)
[2018-06-05 09:51] LABS: ALB/GLOB RATIO 1.1 (1.0-2.1); ALBUMIN 3.5 g/dL (3.5-5.0); CALCIUM 6.8 mg/dl (8.6-10.4)
[2018-06-05] MEDS: cefTRIAXone IV 1 gm in Dextros 50 ML IVPB SCH (09:56)
[2018-06-05] MEDS: Metoprolol Succinate 50 mg XL Tab PO SCH (09:57)
[2018-06-05] MEDS: Sodium Chloride 0.9% 1,000 ML IV SCH ×3 (10:55→23:44)
--- NOTE | 2018-06-05 13:30 | CARD ---
APPROVED REPORT Date of service: 06/04/2018 EKG Measurement Heart [id number] <Conclusion> Normal sinus rhythm Moderate voltage criteria for LVH, may be normal variant Borderline ECG
--- NOTE | 2018-06-05 14:37 | CP.PCM.CON ---
History of Present Illness - History of Present Illness History of Present Illness: 62 year old female with PMHx of HTN, hypercholesterolemia, CKD stage 3, and nephrolithiasis presents to ED for epigastric pain & vomiting X 3 days. Patient states epigastric pain is non radiating, gradually worsened and now is constant 8/10. Patient reports pain to bilateral back. Patient reports vomiting as non bilious, non bloody that is triggered by food. Patient reports several episodes of vomiting through each day. Patient additionally complains that she has difficulty walking more than 1 block due to SOB. Patient reports being able to walk 3+ blocks previously. Patient denies recent illness & travel. ROS: Denies chest pain, cough, diarrhea, constipation, fevers, chills. Patient reports fatigue, generalized body aches and dizziness when walking. PMHx: CKD stage 3, HTN, HLD, R staghorn calculus Medication: Metoprolol ER 50 mg daily, Losartan 40 mg daily PSHx: Allergies: NKDA FHx: Mother has PA at age 68. Father had asthma. No CKD Social Hx: Pt denies tobacco usage, EtOH, or any illicit drug consumption. Pt has not recently travelled or underwent prolonged car rides. Patient advised about uremic symptoms- refusing dialysis though. Review of Systems - Constitutional Constitutional: As Per HPI, Lethargy, Weakness - Gastrointestinal Gastrointestinal: Nausea, Vomiting Past Patient History - Past Medical History & Family History Past Medical History?: Yes Past Family History: Reviewed and not pertinent - Past Social History Smoking Status: Never Smoked Chewing Tobacco Use: No Cigar Use: No Alcohol: None Drugs: Denies Home Situation {Lives}: With Family - CARDIAC Hx Hypercholesterolemia: Yes Hx Hypertension: Yes - NEUROLOGICAL Hx Neurological Disorder: Yes HX Cerebrovascular Accident: Yes (treated three years ago at [place] in [facility]) - MUSCULOSKELETAL/RHEUMATOLOGICAL Hx Falls: No - PSYCHIATRIC Hx Substance Use: No - SURGICAL HISTORY Hx Surgeries: Yes Hx Section: Yes - ANESTHESIA Hx Anesthesia: No Meds Allergies/Adverse Reactions: Allergies Allergy/AdvReac Type Severity Reaction Status Date / Time No Known Allergies Allergy Verified 05/16/17 10:33 - Medications Medications: Current Medications Acetaminophen (Tylenol 325mg Tab) 650 mg PO Q6 PRN PRN Reason: Pain, moderate (4-7) Ceftriaxone Sodium (Rocephin Iv 1 Gm Duplex) 50 mls @ 100 mls/hr IVPB DAILY [facility]; Protocol Last Admin: 06/05/18 09:56 Dose: 100 mls/hr Sodium Chloride (Sodium Chloride 0.9%) 1,000 mls @ 75 mls/hr IV .[id number] [facility] Last Admin: 06/05/18 10:55 Dose: Not Given Metoprolol Succinate (Toprol Xl) 50 mg PO DAILY [facility] Last Admin: 06/05/18 09:57 Dose: 50 mg Ondansetron HCl (Zofran Inj) 4 mg IVP Q6H PRN PRN Reason: Nausea/Vomiting Pantoprazole Sodium (Protonix Inj) 40 mg IVP DAILY [facility] Last Admin: 06/05/18 09:57 Dose: 40 mg Rosuvastatin Calcium (Crestor) 5 mg PO [facility] Physical Exam - Constitutional Appears: No Acute Distress, Chronically Ill - Head Exam Head Exam: ATRAUMATIC, NORMAL INSPECTION - Eye Exam Eye Exam: EOMI, Normal appearance - Neck Exam Neck exam: Positive for: Normal Inspection. Negative for: Tenderness - Respiratory Exam Respiratory Exam: Clear to Auscultation Bilateral, NORMAL BREATHING PATTERN - Cardiovascular Exam Cardiovascular Exam: REGULAR RHYTHM, +S1 - GI/Abdominal Exam GI & Abdominal Exam: Soft. absent: Tenderness - Extremities Exam Extremities exam: Positive for: normal inspection. Negative for: tenderness - Neurological Exam Neurological exam: Alert, CN II-XII Intact - Skin Skin Exam: Dry, Warm Results - Vital Signs Recent Vital Signs: Last Vital Signs Temp 97.6 F 06/05/18 07:00 Pulse 64 06/05/18 07:00 Resp 20 06/05/18 07:00 BP 145/71 06/05/18 07:00 Pulse Ox 94 L 06/05/18 07:00 - Labs Result Diagrams: 06/05/18 09:04 06/05/18 09:04 Labs: Laboratory Results - last 24 hr 06/04/18 06/04/18 06/04/18 16:17 16:17 16:17 WBC 8.0 RBC 2.60 L Hgb 7.8 L Hct 24.3 L MCV 93.2 MCH 30.0 MCHC 32.1 L RDW 13.8 Plt Count 233 MPV 7.1 L Neut % (Auto) 70.4 Lymph % (Auto) 20.1 Banks % (Auto) 7.4 Eos % (Auto) 1.4 Baso % (Auto) 0.7 Neut # (Auto) 5.7 Lymph # (Auto) 1.6 Banks # (Auto) 0.6 Eos # (Auto) 0.1 Baso # (Auto) 0.1 Retic Count pO2 VBG pH VBG pCO2 VBG HCO3 VBG Total CO2 VBG O2 Sat (Calc) VBG Base Excess VBG Potassium Glucose Lactate Crit Value Called To Crit Value Called By Crit Value Read Back Blood Gas Notified Time Sodium 141 Potassium 5.2 Chloride 112 H Carbon Dioxide 15 L Anion Gap 19 BUN 106 H* Creatinine 11.3 H* D Est GFR ( Amer) 4 Est GFR (Non-Af Amer) 3 Random Glucose 129 H D Calcium 6.9 L Phosphorus Magnesium Iron TIBC % Saturation Ferritin Total Bilirubin 0.2 AST 16 ALT 8 L Alkaline Phosphatase 123 Total Protein 7.0 Albumin 3.8 Globulin 3.2 Albumin/Globulin Ratio 1.2 Lipase 555 H Venous Blood Potassium Urine Color Straw Urine Clarity Clear Urine pH 5.0 Ur Specific [place] 1.011 Urine Protein 2+ H Urine Glucose (UA) 1+ Urine Ketones Negative Urine Blood Negative Urine Nitrate Negative Urine Bilirubin Negative Urine Urobilinogen Normal Ur Leukocyte Esterase 2+ H Urine WBC (Auto) 30 H Urine RBC (Auto) 1 Ur Squamous Epith Cells < 1 Urine Bacteria Rare 06/04/18 06/04/18 06/04/18 17:51 21:22 21:22 WBC RBC Hgb Hct MCV MCH MCHC RDW Plt Count MPV Neut % (Auto) Lymph % (Auto) Banks % (Auto) Eos % (Auto) Baso % (Auto) Neut # (Auto) Lymph # (Auto) Banks # (Auto) Eos # (Auto) Baso # (Auto) Retic Count 4.3 H pO2 20 L VBG pH 7.14 L* VBG pCO2 39 L VBG HCO3 11.1 VBG Total CO2 14.5 L VBG O2 Sat (Calc) 38.0 L VBG Base Excess -15.0 L VBG Potassium 4.8 Glucose 112 H Lactate 0.6 L Crit Value Called To Dr patel Crit Value Called By Too cornejo Crit Value Read Back Y Blood Gas Notified Time 1800 Sodium 142.0 Potassium Chloride 118.0 H Carbon Dioxide Anion Gap BUN Creatinine Est GFR ( Amer) Est GFR (Non-Af Amer) Random Glucose Calcium Phosphorus Magnesium Iron 57 TIBC 204 L % Saturation 28 Ferritin Total Bilirubin AST ALT Alkaline Phosphatase Total Protein Albumin Globulin Albumin/Globulin Ratio Lipase Venous Blood Potassium 4.8 Urine Color Urine Clarity Urine pH Ur Specific [place] Urine Protein Urine Glucose (UA) Urine Ketones Urine Blood Urine Nitrate Urine Bilirubin Urine Urobilinogen Ur Leukocyte Esterase Urine WBC (Auto) Urine RBC (Auto) Ur Squamous Epith Cells Urine Bacteria 06/04/18 06/05/18 06/05/18 21:22 09:04 09:04 WBC 8.9 RBC 2.55 L Hgb 7.7 L Hct 23.9 L MCV 93.6 MCH 30.1 MCHC 32.2 L RDW 13.8 Plt Count 233 MPV 7.5 Neut % (Auto) 66.2 Lymph % (Auto) 24.6 Banks % (Auto) 7.2 Eos % (Auto) 1.6 Baso % (Auto) 0.4 Neut # (Auto) 5.9 Lymph # (Auto) 2.2 Banks # (Auto) 0.6 Eos # (Auto) 0.1 Baso # (Auto) 0.0 Retic Count pO2 VBG pH VBG pCO2 VBG HCO3 VBG Total CO2 VBG O2 Sat (Calc) VBG Base Excess VBG Potassium Glucose Lactate Crit Value Called To Crit Value Called By Crit Value Read Back Blood Gas Notified Time Sodium 139 Potassium 4.7 Chloride 115 H Carbon Dioxide 12 L Anion Gap 18 BUN 109 H* Creatinine 10.9 H* Est GFR ( Amer) 4 Est GFR (Non-Af Amer) 4 Random Glucose 88 D Calcium 6.8 L Phosphorus 7.7 H Magnesium 2.0 Iron TIBC % Saturation Ferritin 124.0 Total Bilirubin 0.3 AST 17 ALT 12 Alkaline Phosphatase 123 Total Protein 6.5 Albumin 3.5 Globulin 3.0 Albumin/Globulin Ratio 1.1 Lipase Venous Blood Potassium Urine Color Urine Clarity Urine pH Ur Specific [place] Urine Protein Urine Glucose (UA) Urine Ketones Urine Blood Urine Nitrate Urine Bilirubin Urine Urobilinogen Ur Leukocyte Esterase Urine WBC (Auto) Urine RBC (Auto) Ur Squamous Epith Cells Urine Bacteria Assessment & Plan (1) Hypertensive chronic kidney disease with stage 5 chronic kidney disease or end stage renal disease Status: Acute (2) Staghorn calculus Status: Acute (3) HTN (hypertension) Status: Acute - Assessment and Plan (Free Text) Assessment: ESRD Metabolic acidosis staghorn calculi Advised dialysis- explained to patient Patient refusing treatments
[2018-06-05 17:03] LABS: SQUAMOUS EPITHIAL 1 /hpf (0-5); URINE BACTERIA FEW (<OCC); URINE BILIRUBIN NEGATIVE (NEGATIVE); URINE BLOOD NEGATIVE (NEGATIVE); URINE CLARITY Clear (Clear); URINE COLOR Straw (YELLOW); URINE GLUCOSE (UA) 1+ mg/dL (Normal); URINE LEUKOCYTE ESTERASE 2+ Leu/uL (Negative); URINE PROTEIN 2+ mg/dL (NEGATIVE); URINE UROBILINOGEN NORMAL mg/dL (0.2-1.0)
--- NOTE | 2018-06-05 17:08 | CARD ---
APPROVED REPORT Date of service: 06/05/2018 EXAM: Two-dimensional and M-mode echocardiogram with Doppler and color Doppler. Other Information Quality : GoodRhythm : INDICATION Dyspnea RISK FACTORS Hypertension Hyperlipidemia 2D DIMENSIONS IVSd0.9 (0.7-1.1cm)LVDd4.4 (3.9-5.9cm) PWd1.0 (0.7-1.1cm)LA [id number] (18-58mL) LVDs3.1 (2.5-4.0cm)FS (%) 29.5 % LVEF (%)56.7 (>50%)LVEF (Mata's)58.39 % M-Mode DIMENSIONS Left Atrium (MM)3.55 (2.5-4.0cm)IVSd0.97 (0.7-1.1cm) Aortic Root3.48 (2.2-3.7cm)LVDd5.78 (4.0-5.6cm) Aortic Cusp Exc.2.21 (1.5-2.0cm)PWd0.82 (0.7-1.1cm) FS (%) 42 %LVDs3.33 (2.0-3.8cm) LVEF (%)65 (>50%) Mitral Valve MV E Abshvozm39.3cm/sMV A Ybtdjcic35.0cm/sE/A ratio0.9 TDI Lateral E' Peak V7.64cm/sMedial E' Peak V5.77cm/sE/Lateral E'9.5 E/Medial E'12.5 Tricuspid Valve TR Peak [id number]/sTR Peak Gr.[id number] LEFT VENTRICLE The left ventricle is normal size. There is normal left ventricular wall thickness. Left ventricle systolic function is normal. The Ejection Fraction is 60-65%. There is normal LV segmental wall motion. Transmitral Doppler flow pattern is Grade I-abnormal relaxation pattern. There is no ventricular septal defect visualized. RIGHT VENTRICLE The right ventricle is normal size. The right ventricular systolic function is normal. ATRIA The left atrium is mildly dilated. The right atrium size is normal. AORTIC VALVE The aortic valve is mildly sclerotic. The aortic valve is tri-cuspid. There is mild aortic regurgitation. There is no aortic valvular stenosis. MITRAL VALVE The mitral valve is normal in structure. There is no evidence of mitral valve prolapse. Mitral regurgitation is trace. TRICUSPID VALVE The tricuspid valve is normal in structure. There is trace tricuspid regurgitation. Right ventricular systolic pressure is estimated at less than 30 mmHg. There is no pulmonary hypertension. PULMONIC VALVE The pulmonic valve is not well visualized. There is trace pulmonic valvular regurgitation. GREAT VESSELS The aortic root is normal in size. The ascending aorta is normal in size. The IVC is normal in size and collapses >50% with inspiration. PERICARDIAL EFFUSION There is no pericardial effusion. <Conclusion> Left ventricle systolic function is normal. The Ejection Fraction is 60-65%. Transmitral Doppler flow pattern is Grade I-abnormal relaxation pattern. There is mild aortic regurgitation. Mitral regurgitation is trace.
--- NOTE | 2018-06-05 22:17 | US ---
Right upper quadrant abdominal ultrasound HISTORY: Assess for gallstones. COMPARISON: CT scan dated 06/04/2018 TECHNIQUE: Real-time sonography was performed through the right upper quadrant of the abdomen. FINDINGS: Liver: 13.4 centimeters in length. Increased echogenicity of the hepatic parenchymal cortex suggestive for fatty infiltration versus hepatic parenchymal disease. Clinical correlation. Gallbladder: Cholelithiasis. Normal gallbladder wall thickness of 2.4 millimeters. Negative sonographic Grace's sign. Common bile duct measures 4.8 millimeters, within normal limits. Limited visualization of the pancreas. Right kidney: 9.7 x 6.4 x 6.6 centimeters. In correlation with the recent CT scan, there is a large staghorn calculus measuring up to 1.8 x 1.3 centimeters with additional components measuring up to 1.0 x .4 x 1 4 centimeters. Severely hydronephrotic right kidney with thin rim of peripheral cortex. The renal parenchymal borders are not well delineated given the severely hydronephrotic nature of the kidney. Limited visualization of the aorta and IVC. Impression: Staghorn calculus in the right kidney which appears severely hydronephrotic with marked cortical parenchymal thinning. Cholelithiasis. Increased echogenicity of the hepatic parenchymal cortex suggestive for fatty infiltration versus hepatic parenchymal disease. Clinical correlation. Limited visualization of the pancreas. A preliminary report was generated at 9:15 p.m. on 06/05/[address] Silverio Sheldon from [facility].
--- NOTE | 2018-06-06 04:35 | CON ---
DATE: 06/05/2018 COMPREHENSIVE UROLOGIC CONSULTATION TIME OF CONSULTATION: Roughly 6:30 p.m. BRIEF HISTORY: The patient is a 62-year-old female from [place] with more than two years history of kidney stones and chronic kidney disease previously stage 3 who presents to [facility] Emergency Room today on 06/05/2018 with a history of some nausea with some mild midepigastric pain. She denies any fever or chills. She voids with her usual normal urinary stream. No dysuria, gross hematuria, renal colic or lower abdominal pain. Abdominopelvic CT stone survey done in the emergency room on 06/04/2018 showed a large staghorn calculus with adjacent multiple smaller calcifications with significant hydronephrosis with surrounding thin atrophic cortex in the right kidney. There was a tiny approximately 2.4-mm calcification in the upper mid pole of the left kidney unchanged. Kidney remains lobulated with what probably represents a few tiny exophytic cortical cysts. Adrenals showed no adrenal lesions. The bladder was grossly unremarkable. The urinary bladder was incompletely distended, which presumably in part accounts for the slight thick wall appearance. Cystitis should be excluded. The stomach was distended with some food debris, liquid and air. There are several mildly distended loops of small bowel in the left upper and mid abdomen possibly representing mild ileus. The peritoneum was unremarkable, showing no fluid collection and no free air. The diagnostic impression for the CAT scan was large right sided staghorn calculus with multiple additional relatively large painful calculi with severely hydronephrotic kidney and demonstrating a thin rim of peripheral cortex and nonobstructing 2.4-mm calculus of the left kidney. No evidence of left hydronephrosis. PAST MEDICAL HISTORY: Positive for hypertension and hyperlipidemia. FAMILY HISTORY: Essentially noncontributory. SOCIAL HISTORY: She has no history of any alcohol or tobacco use. ALLERGIES: SHE HAS NO KNOWN ALLERGIES WITH ANY MEDICATIONS. PAST SURGICAL HISTORY: Essentially negative. She was treated for urinary tract infection two years ago when she was first diagnosed with kidney stones. PHYSICAL EXAMINATION: VITAL SIGNS: Temperature is 97.5. Pulse rate is 60. Blood pressure is 155/80. Respiratory rate is 20. O2 sat on room air is 100%. GENERAL: The patient currently appears relatively comfortable at this hour. HEENT: Grossly within normal limits. NECK: Supple. Thyroid not palpable. ABDOMEN: Soft, not distended, nontender. No CVA tenderness. No suprapubic tenderness. EXTREMITIES: She has full range of motion in both upper and lower extremities. LABORATORY DATA: Laboratory evaluation on 06/05/2018 shows CBC with WBC count of 8.9, hemoglobin of 7.7, hematocrit of 23.9 with a platelet count of 233,000 indicating severe anemia. Retic count is 4.3. Her chem profile shows a sodium of 139, potassium 4.7, chloride 115, CO2 of 12 which is relatively low. BUN and creatinine were 109 and 10.9 today and on admission 06/04/2018, her BUN and creatinine were 106 and 11.3 indicating end-stage renal disease. Her GFR is 4. Random glucose is 88, calcium is 6.8, phosphorus 7.7, magnesium 2. Her total bilirubin was 0.3, AST is 17, ALT 12, alkaline phosphatase 123. Lipase 555. Her urinalysis today, 06/05/2018, shows the color was straw colored, cloudy clear, pH of 5, specific gravity of 1.011, total protein 2+, glucose 1+. Ketones, blood, nitrite, bilirubin are all negative. Urobilinogen normal. Leukocyte esterase 2+, wbc's 78, rbc's 2, with few bacteria per high-power field. The patient is currently on IV Rocephin. She is currently scheduled to go for an abdominal ultrasound to see if there is any additional abdominal pathology such as gallstones. DIAGNOSTIC IMPRESSION: For this patient is, 1. End-stage renal disease. Dialysis was discussed with this patient. She currently is refusing dialysis. She was seen by Dr. Carrera (Nephrology). 2. Right staghorn calculus, most likely in a nonfunctioning kidney. Urine culture and sensitivity is still pending. 3. Possible urinary tract infection. PLAN: For this patient is to just maintain the patient on IV Rocephin at this time. There is no urologic intervention required for this patient with end-stage renal disease at this time. Dominic Rivera MD
[2018-06-06 06:45] LABS: BASO % 0.6 % (0.0-2.0); EOS # 0.1 K/uL (0.0-0.7); EOS % 1.6 % (0.0-4.0); LYMPH # 1.7 K/uL (1.0-4.3); LYMPH % 23.3 % (20.0-40.0); MEAN CELL VOLUME 93.4 fL (81.0-99.0); MEAN CORPUSCULAR HEMOGLOBIN 30.6 pg (27.0-31.0); MEAN CORPUSCULAR HGB CONC 32.8 g/dL (33.0-37.0); MONO # 0.5 K/uL (0.0-0.8); MONO % 7.6 % (0.0-10.0); NEUT # 4.8 K/uL (1.8-7.0); NEUT % 66.9 % (50.0-75.0); NRBC % 0.1 % (0.0-2.0); RBC 2.61 Mil/uL (3.80-5.20); RED CELL DISTRIBUTION WIDTH 13.8 % (11.5-14.5); WHITE BLOOD COUNT 7.2 K/uL (4.8-10.8)
[2018-06-06 08:14] LABS: ALB/GLOB RATIO 1.2 (1.0-2.1); ALBUMIN 3.4 g/dL (3.5-5.0); CALCIUM 7.3 mg/dl (8.6-10.4)
--- NOTE | 2018-06-06 09:13 | CP.PCM.PN ---
Subjective - Date & Time of Evaluation Date of Evaluation: 06/06/18 Time of Evaluation: 09:10 - Subjective Subjective: bp stable afebrile renal function unchanged at creatinine around 10 co2 remains low k5 comfortable supine ate breakfast ROS no sob or cough no chest pain epigastric pain no n,v consitpated no dysuria Objective - Vital Signs/Intake and Output Vital Signs (last 24 hours): Temp Pulse Resp BP Pulse Ox 98.1 F 60 20 168/85 H 97 06/06/18 07:00 06/06/18 07:00 06/06/18 07:00 06/06/18 07:00 06/06/18 07:00 Intake and Output: 06/06/18 06/06/18 06:59 18:59 Intake Total 750 Balance 750 - Medications Medications: Current Medications Acetaminophen (Tylenol 325mg Tab) 650 mg PO Q6 PRN PRN Reason: Pain, moderate (4-7) Calcium Acetate (Phoslo) 667 mg PO TID [facility] Last Admin: 06/05/18 20:00 Dose: 667 mg Ceftriaxone Sodium (Rocephin Iv 1 Gm Duplex) 50 mls @ 100 mls/hr IVPB DAILY [facility]; Protocol Last Admin: 06/05/18 09:56 Dose: 100 mls/hr Sodium Chloride (Sodium Chloride 0.9%) 1,000 mls @ 75 mls/hr IV .[id number] [facility] Last Admin: 06/05/18 23:44 Dose: Not Given Metoprolol Succinate (Toprol Xl) 50 mg PO DAILY [facility] Last Admin: 06/05/18 09:57 Dose: 50 mg Ondansetron HCl (Zofran Inj) 4 mg IVP Q6H PRN PRN Reason: Nausea/Vomiting Last Admin: 06/05/18 17:14 Dose: 4 mg Pantoprazole Sodium (Protonix Inj) 40 mg IVP DAILY [facility] Last Admin: 06/05/18 09:57 Dose: 40 mg Rosuvastatin Calcium (Crestor) 5 mg PO HS [facility] Last Admin: 06/05/18 22:03 Dose: 5 mg Sodium Bicarbonate (Sodium Bicarbonate Tab) 650 mg PO BID [facility] Last Admin: 06/05/18 20:00 Dose: 650 mg - Labs Labs: 06/06/18 06:35 06/06/18 06:35 - Constitutional Appears: No Acute Distress - Eye Exam Eye Exam: Normal appearance - ENT Exam ENT Exam: Mucous Membranes Moist - Respiratory Exam Respiratory Exam: Clear to Ausculation Bilateral, NORMAL BREATHING PATTERN - Cardiovascular Exam Cardiovascular Exam: REGULAR RHYTHM. absent: JVD, Rubs - GI/Abdominal Exam GI & Abdominal Exam: Soft. absent: Distended, Tenderness - Extremities Exam Extremities Exam: absent: Calf Tenderness - Back Exam Back Exam: absent: CVA tenderness (L), CVA tenderness (R) - Neurological Exam Neurological Exam: Altered - Psychiatric Exam Psychiatric exam: Normal Mood - Skin Skin Exam: Dry, Warm Assessment and Plan (1) Acute renal failure Status: Acute (2) Staghorn calculus Status: Acute (3) HTN (hypertension) Status: Acute - Assessment and Plan (Free Text) Plan: again stated to need to start dialysis will not consent to increas po bicarb
[2018-06-06] MEDS: cefTRIAXone IV 1 gm in Dextros 50 ML IVPB SCH (09:41)
[2018-06-06] MEDS: Metoprolol Succinate 50 mg XL Tab PO SCH (09:41)
--- NOTE | 2018-06-06 14:43 | CP.PCM.DIS ---
<Chadwick Rosales - Last Filed: 06/06/18 22:54> Provider - Provider Date of Admission: 06/04/18 18:23 Attending physician: Dr Diaz Consults: 06/04/18 20:35 Urology Consult Routine Comment: staghorn caliculi w/hydronephrotic kidney Consulting Provider: Dominic Rivera Consulting Physician: Dominic Rivera Reason for Consult: staghorn caliculi w/hydronephrotic kidney 06/05/18 00:43 Nephrology Consult Routine Comment: Consulting Provider: Pepe Carrera Consulting Physician: Pepe Carrera Reason for Consult: ckd, worsening creatine, SOB Time Spent in preparation of Discharge (in minutes): 45 Diagnosis - Discharge Diagnosis (1) Hypertensive chronic kidney disease with stage 5 chronic kidney disease or end stage renal disease Status: Chronic (2) Renal failure (ARF), acute on chronic Status: Chronic (3) Staghorn calculus Status: Chronic (4) Gastritis Status: Resolved (5) Acute on chronic anemia Status: Chronic (6) HLD (hyperlipidemia) Status: Chronic (7) HTN (hypertension) Status: Chronic (8) UTI (urinary tract infection) Status: Resolved Hospital Course - Lab Results Lab Results: Micro Results 06/05/18 16:43 Urine,Clean Catch Urine Culture - Final No Growth (<1,000 CFU/ML) Most Recent Lab Values WBC 7.2 K/uL (4.8-10.8) 06/06/18 06:35 RBC 2.61 Mil/uL (3.80-5.20) L 06/06/18 06:35 Hgb 8.0 g/dL (11.0-16.0) L 06/06/18 06:35 Hct 24.4 % (34.0-47.0) L 06/06/18 06:35 MCV 93.4 fL (81.0-99.0) 06/06/18 06:35 MCH 30.6 pg (27.0-31.0) 06/06/18 06:35 MCHC 32.8 g/dL (33.0-37.0) L 06/06/18 06:35 RDW 13.8 % (11.5-14.5) 06/06/18 06:35 Plt Count 236 K/uL (130-400) 06/06/18 06:35 MPV 7.0 fL (7.2-11.7) L 06/06/18 06:35 Neut % (Auto) 66.9 % (50.0-75.0) 06/06/18 06:35 Lymph % (Auto) 23.3 % (20.0-40.0) 06/06/18 06:35 [place] % (Auto) 7.6 % (0.0-10.0) 06/06/18 06:35 Eos % (Auto) 1.6 % (0.0-4.0) 06/06/18 06:35 Baso % (Auto) 0.6 % (0.0-2.0) 06/06/18 06:35 Neut # (Auto) 4.8 K/uL (1.8-7.0) 06/06/18 06:35 Lymph # (Auto) 1.7 K/uL (1.0-4.3) 06/06/18 06:35 [place] # (Auto) 0.5 K/uL (0.0-0.8) 06/06/18 06:35 Eos # (Auto) 0.1 K/uL (0.0-0.7) 06/06/18 06:35 Baso # (Auto) 0.0 K/uL (0.0-0.2) 06/06/18 06:35 Retic Count 4.3 % (0.5-1.5) H 06/04/18 21:22 pO2 20 mm/Hg (30-55) L 06/04/18 17:51 VBG pH 7.14 (7.32-7.43) L* 06/04/18 17:51 VBG pCO2 39 mmHg (40-60) L 06/04/18 17:51 VBG HCO3 11.1 mmol/L 06/04/18 17:51 VBG Total CO2 14.5 mmol/L (22-28) L 06/04/18 17:51 VBG O2 Sat (Calc) 38.0 % (40-65) L 06/04/18 17:51 VBG Base Excess -15.0 mmol/L (0.0-2.0) L 06/04/18 17:51 VBG Potassium 4.8 mmol/L (3.6-5.2) 06/04/18 17:51 Sodium 142.0 mmol/l (132-148) 06/04/18 17:51 Chloride 118.0 mmol/L (98-107) H 06/04/18 17:51 Glucose 112 mg/dl (65-105) H 06/04/18 17:51 Lactate 0.6 mmol/L (0.7-2.1) L 06/04/18 17:51 Crit Value Called To Dr patel 06/04/18 17:51 Crit Value Called By Too cornejo 06/04/18 17:51 Crit Value Read Back Y 06/04/18 17:51 Blood Gas Notified Time 1800 06/04/18 17:51 Sodium 138 mmol/L (132-148) 06/06/18 06:35 Potassium 5.0 mmol/L (3.6-5.2) 06/06/18 06:35 Chloride 114 mmol/L (98-107) H 06/06/18 06:35 Carbon Dioxide 12 mmol/L (22-30) L 06/06/18 06:35 Anion Gap 16 (10-20) 06/06/18 06:35 BUN 92 mg/dL (7-17) H 06/06/18 06:35 Creatinine 10.9 mg/dL (0.7-1.2) H* 06/06/18 06:35 Est GFR ( Amer) 4 06/06/18 06:35 Est GFR (Non-Af Amer) 4 06/06/18 06:35 Random Glucose 91 mg/dL (65-105) 06/06/18 06:35 Calcium 7.3 mg/dl (8.6-10.4) L 06/06/18 06:35 Phosphorus 7.7 mg/dL (2.5-4.5) H 06/06/18 06:35 Magnesium 1.9 mg/dL (1.6-2.3) 06/06/18 06:35 Iron 57 ug/dL (37-170) 06/04/18 21:22 TIBC 204 ug/dL (250-450) L 06/04/18 21:22 % Saturation 28 (20-55) 06/04/18 21:22 Ferritin 124.0 ng/mL 06/04/18 21:22 Total Bilirubin 0.5 mg/dL (0.2-1.3) 06/06/18 06:35 AST 13 U/L (14-36) L D 06/06/18 06:35 ALT 8 U/L (9-52) L D 06/06/18 06:35 Alkaline Phosphatase 117 U/L (38-126) 06/06/18 06:35 Total Protein 6.2 g/dL (6.3-8.3) L 06/06/18 06:35 Albumin 3.4 g/dL (3.5-5.0) L 06/06/18 06:35 Globulin 2.8 gm/dL (2.2-3.9) 06/06/18 06:35 Albumin/Globulin Ratio 1.2 (1.0-2.1) 06/06/18 06:35 Triglycerides 209 mg/dL (0-149) H D 06/06/18 06:35 Cholesterol 209 mg/dL (0-199) H 06/06/18 06:35 LDL Cholesterol Direct 120 mg/dL (0-129) 06/06/18 06:35 HDL Cholesterol 30 mg/dL (30-70) 06/06/18 06:35 Lipase 406 U/L (23-300) H 06/06/18 06:35 Venous Blood Potassium 4.8 mmol/L (3.6-5.2) 06/04/18 17:51 Urine Color Straw (YELLOW) 06/05/18 16:43 Urine Clarity Clear (Clear) 06/05/18 16:43 Urine pH 5.0 (5.0-8.0) 06/05/18 16:43 Ur Specific [place] 1.011 (1.003-1.030) 06/05/18 16:43 Urine Protein 2+ mg/dL (NEGATIVE) H 06/05/18 16:43 Urine Glucose (UA) 1+ mg/dL (Normal) 06/05/18 16:43 Urine Ketones Negative mg/dL (NEGATIVE) 06/05/18 16:43 Urine Blood Negative (NEGATIVE) 06/05/18 16:43 Urine Nitrate Negative (NEGATIVE) 06/05/18 16:43 Urine Bilirubin Negative (NEGATIVE) 06/05/18 16:43 Urine Urobilinogen Normal mg/dL (0.2-1.0) 06/05/18 16:43 Ur Leukocyte Esterase 2+ Mario/uL (Negative) H 06/05/18 16:43 Urine WBC (Auto) 78 /hpf (0-5) H 06/05/18 16:43 Urine RBC (Auto) 2 /hpf (0-3) 06/05/18 16:43 Ur Squamous Epith Cells 1 /hpf (0-5) 06/05/18 16:43 Urine Bacteria Few (<OCC) H 06/05/18 16:43 - Hospital Course Hospital Course: 62 year old female with PMHx of HTN, hypercholesterolemia, CKD stage 3, and nephrolithiasis presents to ED for epigastric pain & vomiting X 3 days. Patient states epigastric pain is non radiating, gradually worsened and now is constant 8/. Patient reports pain to bilateral back. Patient reports vomiting as non bilious, non bloody that is triggered by food. Patient reports several episodes of vomiting through each day. Patient additionally complains that she has difficulty walking more than 1 block due to SOB. Patient reports being able to walk 3+ blocks previously. Patient denies recent illness & travel. ROS: Denies chest pain, cough, diarrhea, constipation, fevers, chills. Patient reports fatigue, generalized body aches and dizziness when walking. PMHx: CKD stage 3, HTN, HLD, R staghorn calculus Medication: Metoprolol ER 50 mg daily, Losartan 40 mg daily PSHx: Allergies: NKDA FHx: Mother has IN at age 68. Father had asthma. Social Hx: Pt denies tobacco usage, EtOH, or any illicit drug consumption. Pt has not recently travelled or underwent prolonged car rides. Pt was admitted and treated for her UTI with cefrtiaxone empirically, pt came back with clean UA UC, for gastritis pt improved w/ zofran, for her ESRD pt was seen by Dr Carrera however was not convinced to start dialysis and was ultimately treated insufficientyl with only phoslo, sodium bicarb and IVF. Pt was extensively educated on her condition and still refused to start dialysis, pt says she wants to go back to [place]. this is a summary, please refer to [facility] [employer] for complete records Discharge Exam - Head Exam Head Exam: ATRAUMATIC, NORMAL INSPECTION - Additional Findings Additional findings: - Constitutional Appears: No Acute Distress - Head Exam Head Exam: ATRAUMATIC, NORMAL INSPECTION - Eye Exam Eye Exam: EOMI, Normal appearance - ENT Exam ENT Exam: Mucous Membranes Moist - Respiratory Exam Respiratory Exam: Clear to Ausculation Bilateral, NORMAL BREATHING PATTERN - Cardiovascular Exam Cardiovascular Exam: REGULAR RHYTHM, +S1, +S2 - GI/Abdominal Exam GI & Abdominal Exam: Soft, Normal Bowel Sounds. absent: Tenderness Discharge Plan - Discharge Medications Prescriptions: Atorvastatin [Lipitor] 20 mg PO HS #30 tab Calcium Acetate [Phoslo] 667 mg PO TID #90 tab Metoprolol Succinate XL [Toprol XL] 50 mg PO DAILY #30 tab Sodium Bicarbonate Tab 650 mg PO BID #60 tab - Follow Up Plan Condition: STABLE Disposition: HOME/ ROUTINE Instructions: Hemodialysis, Kidney Failure (DC), Renal Failure Diet (DC) Additional Instructions: These medications are not sufficient for your current medical condition, you will need dialysis for your end stage kidney disease please take the following medications as prescribed Atorvastatin [Lipitor] 20 mg PO HS #30 tab Calcium Acetate [Phoslo] 667 mg PO TID #90 tab Metoprolol Succinate XL [Toprol XL] 50 mg PO DAILY #30 tab Sodium Bicarbonate Tab 650 mg PO BID #60 tab Please follow up with your Primary Doctor at [address] [place] [address] in [facility] within 7 days of discharge, he can help you if you would like to start dialysis Please consider the fact that your kidneys are in failure and you need dialysis, Referrals: Niall Castaneda DO [[facility]] - <Saman Diaz - Last Filed: 06/07/18 07:20> Provider - Provider Date of Admission: 06/04/18 18:23 Attending physician: Nida Davis DO Consults: 06/04/18 20:35 Urology Consult Routine Comment: staghorn caliculi w/hydronephrotic kidney Consulting Provider: Dominic Rivera Consulting Physician: Dominic Rivera Reason for Consult: staghorn caliculi w/hydronephrotic kidney 06/05/18 00:43 Nephrology Consult Routine Comment: Consulting Provider: Pepe Carrera Consulting Physician: Pepe Carrera Reason for Consult: ckd, worsening creatine, SOB Hospital Course - Lab Results Lab Results: Micro Results 06/05/18 16:43 Urine,Clean Catch Urine Culture - Final No Growth (<1,000 CFU/ML) Most Recent Lab Values WBC 7.2 K/uL (4.8-10.8) 06/06/18 06:35 RBC 2.61 Mil/uL (3.80-5.20) L 06/06/18 06:35 Hgb 8.0 g/dL (11.0-16.0) L 06/06/18 06:35 Hct 24.4 % (34.0-47.0) L 06/06/18 06:35 MCV 93.4 fL (81.0-99.0) 06/06/18 06:35 MCH 30.6 pg (27.0-31.0) 06/06/18 06:35 MCHC 32.8 g/dL (33.0-37.0) L 06/06/18 06:35 RDW 13.8 % (11.5-14.5) 06/06/18 06:35 Plt Count 236 K/uL (130-400) 06/06/18 06:35 MPV 7.0 fL (7.2-11.7) L 06/06/18 06:35 Neut % (Auto) 66.9 % (50.0-75.0) 06/06/18 06:35 Lymph % (Auto) 23.3 % (20.0-40.0) 06/06/18 06:35 [place] % (Auto) 7.6 % (0.0-10.0) 06/06/18 06:35 Eos % (Auto) 1.6 % (0.0-4.0) 06/06/18 06:35 Baso % (Auto) 0.6 % (0.0-2.0) 06/06/18 06:35 Neut # (Auto) 4.8 K/uL (1.8-7.0) 06/06/18 06:35 Lymph # (Auto) 1.7 K/uL (1.0-4.3) 06/06/18 06:35 [place] # (Auto) 0.5 K/uL (0.0-0.8) 06/06/18 06:35 Eos # (Auto) 0.1 K/uL (0.0-0.7) 06/06/18 06:35 Baso # (Auto) 0.0 K/uL (0.0-0.2) 06/06/18 06:35 Retic Count 4.3 % (0.5-1.5) H 06/04/18 21:22 pO2 20 mm/Hg (30-55) L 06/04/18 17:51 VBG pH 7.14 (7.32-7.43) L* 06/04/18 17:51 VBG pCO2 39 mmHg (40-60) L 06/04/18 17:51 VBG HCO3 11.1 mmol/L 06/04/18 17:51 VBG Total CO2 14.5 mmol/L (22-28) L 06/04/18 17:51 VBG O2 Sat (Calc) 38.0 % (40-65) L 06/04/18 17:51 VBG Base Excess -15.0 mmol/L (0.0-2.0) L 06/04/18 17:51 VBG Potassium 4.8 mmol/L (3.6-5.2) 06/04/18 17:51 Sodium 142.0 mmol/l (132-148) 06/04/18 17:51 Chloride 118.0 mmol/L (98-107) H 06/04/18 17:51 Glucose 112 mg/dl (65-105) H 06/04/18 17:51 Lactate 0.6 mmol/L (0.7-2.1) L 06/04/18 17:51 Crit Value Called To Dr patel 06/04/18 17:51 Crit Value Called By Too cornejo 06/04/18 17:51 Crit Value Read Back Y 06/04/18 17:51 Blood Gas Notified Time 1800 06/04/18 17:51 Sodium 138 mmol/L (132-148) 06/06/18 06:35 Potassium 5.0 mmol/L (3.6-5.2) 06/06/18 06:35 Chloride 114 mmol/L (98-107) H 06/06/18 06:35 Carbon Dioxide 12 mmol/L (22-30) L 06/06/18 06:35 Anion Gap 16 (10-20) 06/06/18 06:35 BUN 92 mg/dL (7-17) H 06/06/18 06:35 Creatinine 10.9 mg/dL (0.7-1.2) H* 06/06/18 06:35 Est GFR ( Amer) 4 06/06/18 06:35 Est GFR (Non-Af Amer) 4 06/06/18 06:35 Random Glucose 91 mg/dL (65-105) 06/06/18 06:35 Calcium 7.3 mg/dl (8.6-10.4) L 06/06/18 06:35 Phosphorus 7.7 mg/dL (2.5-4.5) H 06/06/18 06:35 Magnesium 1.9 mg/dL (1.6-2.3) 06/06/18 06:35 Iron 57 ug/dL (37-170) 06/04/18 21:22 TIBC 204 ug/dL (250-450) L 06/04/18 21:22 % Saturation 28 (20-55) 06/04/18 21:22 Ferritin 124.0 ng/mL 06/04/18 21:22 Total Bilirubin 0.5 mg/dL (0.2-1.3) 06/06/18 06:35 AST 13 U/L (14-36) L D 06/06/18 06:35 ALT 8 U/L (9-52) L D 06/06/18 06:35 Alkaline Phosphatase 117 U/L (38-126) 06/06/18 06:35 Total Protein 6.2 g/dL (6.3-8.3) L 06/06/18 06:35 Albumin 3.4 g/dL (3.5-5.0) L 06/06/18 06:35 Globulin 2.8 gm/dL (2.2-3.9) 06/06/18 06:35 Albumin/Globulin Ratio 1.2 (1.0-2.1) 06/06/18 06:35 Triglycerides 209 mg/dL (0-149) H D 06/06/18 06:35 Cholesterol 209 mg/dL (0-199) H 06/06/18 06:35 LDL Cholesterol Direct 120 mg/dL (0-129) 06/06/18 06:35 HDL Cholesterol 30 mg/dL (30-70) 06/06/18 06:35 Lipase 406 U/L (23-300) H 06/06/18 06:35 Venous Blood Potassium 4.8 mmol/L (3.6-5.2) 06/04/18 17:51 Urine Color Straw (YELLOW) 06/05/18 16:43 Urine Clarity Clear (Clear) 06/05/18 16:43 Urine pH 5.0 (5.0-8.0) 06/05/18 16:43 Ur Specific [place] 1.011 (1.003-1.030) 06/05/18 16:43 Urine Protein 2+ mg/dL (NEGATIVE) H 06/05/18 16:43 Urine Glucose (UA) 1+ mg/dL (Normal) 06/05/18 16:43 Urine Ketones Negative mg/dL (NEGATIVE) 06/05/18 16:43 Urine Blood Negative (NEGATIVE) 06/05/18 16:43 Urine Nitrate Negative (NEGATIVE) 06/05/18 16:43 Urine Bilirubin Negative (NEGATIVE) 06/05/18 16:43 Urine Urobilinogen Normal mg/dL (0.2-1.0) 06/05/18 16:43 Ur Leukocyte Esterase 2+ Mario/uL (Negative) H 06/05/18 16:43 Urine WBC (Auto) 78 /hpf (0-5) H 06/05/18 16:43 Urine RBC (Auto) 2 /hpf (0-3) 06/05/18 16:43 Ur Squamous Epith Cells 1 /hpf (0-5) 06/05/18 16:43 Urine Bacteria Few (<OCC) H 06/05/18 16:43 Attending/Attestation - Attestation I have personally seen and examined this patient.: Yes I have fully participated in the care of the patient.: Yes I have reviewed all pertinent clinical information, including history, physical exam and plan: Yes Notes (Text): Patient is refusing dialysis. Explain about end stage renal failure and its complication in [place] b. All questions answered. Patient is planning to go back to her country. She wants to come back if she feels sick.
[2018-06-06 17:24] VITALS: BP 148/78; TEMP 98.7; O2SAT 100
[2018-06-06 20:34] VITALS: PULSE 61
[2018-06-06] MEDS ORDERED: Influenza Vaccine 60 mcg/0.5 mL SYR (4YR UP) IM ONE (20:51)
--- NOTE | 2018-06-08 10:23 | VASCLAB ---
Date of service: 06/05/2018 PROCEDURE: Lower Extremity Venous Duplex Exam. HISTORY: lower extremity pain PRIORS: None. TECHNIQUE: Bilateral common femoral, femoral, popliteal and posterior tibial, peroneal and great saphenous veins were evaluated. Flow was assessed with color Doppler, compressibility, assessment of phasic flow and augmentation response. Report prepared by Sander Jeronimo, BS, RVT FINDINGS: RIGHT: 1. Common Femoral Vein: 1.1. Compressibility - Fully compressible: Thrombus - None : Flow - Phasic: Augmentation -Normal: Reflux - None. 2. Femoral Vein: 2.1. Compressibility - Fully compressible: Thrombus - None : Flow - Phasic: Augmentation -Normal: Reflux - None. 3. Popliteal Vein: 3.1. Compressibility - Fully compressible: Thrombus - None : Flow - Phasic: Augmentation -Normal: Reflux - None. 4. Posterior Tibial Vein: 4.1. Compressibility - Fully compressible: Thrombus - None: Flow - Phasic: Augmentation -Normal: Reflux - None. 5. Peroneal Vein: 5.1. Compressibility - Fully compressible: Thrombus - None: Flow - Phasic: Augmentation -Normal: Reflux - None. 6. Great Saphenous Vein: 6.1. Compressibility - Fully compressible: Thrombus - None: Flow - Phasic: Augmentation - Normal: Reflux - None. LEFT: 1. Common Femoral Vein: 1.1. Compressibility - Fully compressible: Thrombus - None: Flow - Phasic: Augmentation -Normal: Reflux - None. 2. Femoral Vein: 2.1. Compressibility - Fully compressible: Thrombus - None: Flow - Phasic: Augmentation -Normal: Reflux - None. 3. Popliteal Vein: 3.1. Compressibility - Fully compressible: Thrombus - None : Flow - Phasic: Augmentation -Normal: Reflux - None. 4. Posterior Tibial Vein: 4.1. Compressibility - Fully compressible: Thrombus - None: Flow - Phasic: Augmentation -Normal: Reflux - None. 5. Peroneal Vein: 5.1. Compressibility - Fully compressible: Thrombus - None: Flow - Phasic: Augmentation -Normal: Reflux - None. 6. Great Saphenous Vein: 6.1. Compressibility - Fully compressible: Thrombus - None: Flow - Phasic: Augmentation - Normal: Reflux - None. OTHER FINDINGS: Right: None significant. Left: None significant. IMPRESSION: Right: No evidence of deep or superficial vein thrombosis of the right lower extremity. Normal valve function noted of the right side. Left: No evidence of deep or superficial vein thrombosis of the left lower extremity. Normal valve function noted of the left side.
== END 2018-06-06 21:08 | disposition home or self-care (01) | DRG 470 ==
LOC: C.ER 15:07 → C.9E 18:23 → C.5S 19:37
PROVIDERS: ADMIT Hospitalist; ATTEND Hospitalist
DX: I12.0 Hypertensive chronic kidney disease with stage 5 chronic kidney disease or end stage renal disease (principal); N17.9 Acute kidney failure, unspecified; E87.2 Acidosis; N18.6 End stage renal disease; N13.6 Pyonephrosis; D63.1 Anemia in chronic kidney disease; E78.00 Pure hypercholesterolemia, unspecified; Z82.49 Family history of ischemic heart disease and other diseases of the circulatory system; Z86.73 Personal history of transient ischemic attack (TIA), and cerebral infarction without residual deficits; Z87.442 Personal history of urinary calculi; Z98.891 History of uterine scar from previous surgery; E86.0 Dehydration; K29.70 Gastritis, unspecified, without bleeding